=== PATIENT | female | born 2005 | race Caucasian/White ===

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

== ENCOUNTER 2024-05-07 15:16 | Emergency (ER) | payer BC, SELFPAY ==
[2024-05-07 15:19] VITALS: BP 104/72; PULSE 76; RESP 16; TEMP 36.7; O2SAT 98
--- NOTE | 2024-05-07 15:30 | DI.RAD_ITS ---
Exam(s) XR HAND RT COMPLETE EXAM: XR HAND RT COMPLETE CLINICAL HISTORY: dog bite. TECHNIQUE: 2D digital imaging was performed. COMPARISON: CR XR HAND LT COMPLETE from 05/07/2024 FINDINGS: 3 views No evidence of fracture nor dislocation nor abnormal soft tissue calcifications. No radiopaque forei gn bodies. No osseous lesions. No erosions. Bone density normal. IMPRESSION: No significant osseous findings in the right hand. DATA REPOSITORY: RADIATION DOSE DELIVERED:
--- NOTE | 2024-05-07 15:30 | DI.RAD_ITS ---
Exam(s) XR HAND LT COMPLETE EXAM: XR HAND LT COMPLETE CLINICAL HISTORY: dog bite. TECHNIQUE: 2D digital imaging was performed. COMPARISON: CR XR hand RT complete from 12/22/2018 FINDINGS: 3 views There is mild dorsal soft tissue swelling. No evidence of fracture or dislocation nor radiopaque for eign bodies. No osseous lesions nor erosions. No evidence of osteomyelitis. IMPRESSION: No acute osseous findings in the left hand. DATA REPOSITORY: RADIATION DOSE DELIVERED:
[2024-05-07] MEDS: Povidone-Iodine Soln. 118 ML BTL (15:55)
[2024-05-07] MEDS: Acetaminophen 500 MG TAB 1000 MG PO (15:55)
[2024-05-07] MEDS: Lidocaine/Epinephri/Tetracaine Topical Gel 3 ML TP (15:55)
[2024-05-07] MEDS: Amoxicillin 875/Clav. 125 TAB PO (15:55)
[2024-05-07 15:57] VITALS: BP 104/72; PULSE 76; RESP 16; TEMP 36.7; O2SAT 98
[2024-05-07] MEDS: Amox. 875/Clav. 125, 2 TABS/BTL 1 TAB PO (16:55)
--- NOTE | 2024-05-07 19:56 | ED.GENADUL_ITS ---
Discharge Plan Disposition Patient Disposition: Home Condition: Stable Discharge Details Clinical Impression: Dog bite Primary Care Provider: Unknown,Unknown ED Provider: Andrea Snell Home Meds and New Rx's Prescriptions: New amoxicillin-pot clavulanate 875-125 mg tablet 1 tab PO BID 6 Days Qty: 12 0RF No Action ibuprofen 400 MG tablet 400 mg PO Q6H PRN PRNQty: 60 0RF Discharge Instructions Instructions: Animal Bites ED Additional Instructions: * Continue Augmentin for total of 7 days * Keep wounds clean and dry with soap and water. Pat dry. Do not scrub the area. Do not apply hydrogen peroxide or alcohol * You have 3 stitches in your face, these will dissolve in about 7 to 10 days you may notice additional bruising or swelling, you can apply ice pack to the area * You have 1 stitch in your right middle finger, this will also dissolve * Monitor for signs of infection including worsening redness, swelling, foul- smelling drainage Discharge Data Discharge Date/Time-TO BE ENTERED AT DEPARTURE: 05/07/24 16:56 HPI General Date/Time Provider Initiated Documentation: 05/07/24 15:40 . Limitations to Documentation: no limitations . Information obtained by: patient . HPI Narrative: 18-year-old female without significant past medical history presents for evaluation of injuries sustained from a dog. She reports that her pets were fighting and she went to break them up. She states that they are like medium size dogs. She reports injury to her face and bilateral hands. She reports that their vaccinations are up-to-date as well as her tetanus. Related Data Home Medications ?Medication ?Instructions ?Recorded ?Confirmed ibuprofen 400 mg tablet 400 mg PO Q6H PRN PRN ##60 12/11/17 05/07/24 amoxicillin 875 mg-potassium 1 tab PO BID 6 days #12 tabs 05/07/24 clavulanate 125 mg tablet Previous Rx's ?Medication ?Instructions ?Recorded ibuprofen 400 mg tablet 400 mg PO Q6H PRN PRN ##60 12/11/17 amoxicillin 875 mg-potassium 1 tab PO BID 6 days #12 tabs 05/07/24 clavulanate 125 mg tablet Allergies Allergy/AdvReac Type Severity Reaction Status Date / Time No Known Allergies Allergy Unverified 05/07/24 15:24 General Stated Complaint: AnimalBite LEO: 3 Exam Narrative Exam Narrative: Review of Systems: All systems reviewed & are unremarkable except as noted in HPI and below Well-developed, no acute distress Abrasion over left orthodoxy, 1.5 cm linear laceration well-approximated over the left zygoma PERRL, normal conjunctiva RRR Unlabored respiratory effort Bilateral hands with injuries noted. The left hand has some swelling and bruising noted. There are 2 punctures on the dorsal side and 2 very small punctures on the palmar aspect, neurovascularly intact, normal range of motion throughout all distributions On the right hand the long finger has very small disruption to the cuticle, nailbed is intact, on the palmar aspect of the hand there is a 1 cm gaping disruption Course Vital Signs Vital signs: Vital Signs Temperature 36.7 C 05/07/24 15:19 Pulse 76 05/07/24 15:19 Respiratory Rate 16 05/07/24 15:19 Blood Pressure 104/72 05/07/24 15:19 Pulse Oximetry 98 05/07/24 15:19 Temperature 36.7 C 05/07/24 15:57 Temperature Source Oral 05/07/24 15:57 Pulse 76 05/07/24 15:57 Respiratory Rate 16 05/07/24 15:57 Respiratory Effort Normal 05/07/24 15:25 Blood Pressure 104/72 05/07/24 15:57 Pulse Oximetry 98 05/07/24 15:57 Oxygen Delivery Method Room Air 05/07/24 15:57 Oxygen Flow Rate 0 05/07/24 15:57 Pain Level 7 05/07/24 15:57 Procedures Laceration Laceration 1: Site: face Side (If applicable): left Size (cm): 1.5 Depth: simple, single layer Local anesthetic: LET(lidocaine epinephrine tetracaine) Pre-repair: wound explored and irrigated extensively Skin layer closed with: vicryl Size (cm): 5-0 Number of sutures: 3 Laceration 2: Site: hand Side (If applicable): right (Long finger) Size (cm): 1 Description: irregular Local anesthetic: Lidocaine 1% (Digital block) Pre-repair: wound explored, irrigated extensively and deep structures intact Skin layer closed with: vicryl Size (cm): 5-0 Number of sutures: 1 Technique: simple, interrupted Medical Decision Making Emergent evaluation of injury sustained from dog bite. The patient sustained these injuries from her own dogs. They are vaccinated. The patient has bilateral hand injuries. Wounds were all irrigated and cleaned. X-ray imaging of bilateral hands was obtained to evaluate for fracture or foreign body. There were no bony injuries noted. The left hand wounds are fairly small puncture type wounds and do not need suture repair. These are left open to drain. She does have a gaping wound on the right palmar surface of the long finger and 1 stitch was placed to just approximate this gape, but otherwise left open to help with drainage and healing. 3 sutures were placed to loosely approximate the laceration on her face. Wound care instructions were provided and strict return precautions were discussed. Signs of infection were discussed with the patient. Her first dose of Augmentin was given in the emergency department. And a prescription was sent to the pharmacy. Return precautions advised. Quality:[facility] Related Social Needs: No Data to Display [facility] All Active Problems Dog bite (Acute) Surgical History Tonsillectomy and adenoidectomy Social History Smoking/Tobacco Use Status: Current every day Tobacco Type: e-cigarettes Smoking risk assessment performed?: Yes Alcohol Intake: current Alcohol Intake frequency: holidays/special occasions only Drug use: Daily Substance use type: marijuana Housing: house Do you feel safe at home: Yes Do you feel safe in your relationship?: Yes
== END 2024-05-07 16:56 | disposition home or self-care (01) ==
PROVIDERS: Emergency Provider Emergency Medicine
DX: S61.451A Open bite of right hand, initial encounter (principal); S01.85XA Open bite of other part of head, initial encounter; W54.0XXA Bitten by dog, initial encounter
CPT/HCPCS: 12001; 12011; 99283; 73130; 99284

== ENCOUNTER 2024-08-26 16:33 | Outpatient (REF) | payer BC, SELFPAY ==
[2024-08-26 18:59] LABS: Abs Immature Grans 0.02 10^3/uL (0.0-0.06); Absolute Basophil Count 0.05 10^3/uL (0.0-0.2); Absolute Lymphocyte Count 2.57 10^3/uL (1.2-3.4); Absolute Monocyte Count 0.44 10^3/uL (0.1-0.8); Absolute Neutrophil Count 4.05 10^3/uL (1.2-6.7); Basophils % 0.7 %; Eosinophils % 1.4 %; HCT 41.8 % (36.0-46.0); HGB 14.1 g/dL (11.2-15.7); Immature Grans % 0.3 %; Lymphocytes % 35.5 %; MCH 30.5 pg (27.0-33.0); MCHC 33.7 % (32.0-36.0); MCV 91 fL (80-95); MPV 10.3 fL (8.0-11.0); Monocytes % 6.1 %; Platelet Count 284 10^3/uL (130-400); RBC 4.62 10^6/uL (3.93-5.22); RDW 12.1 % (11.7-14.6); WBC 7.23 10^3/uL (4.4-10.8)
[2024-08-26 19:15] LABS: ALT 25 U/L (14-59); AST 22 U/L (15-37); Albumin 4.2 g/dL (3.4-5.0); Alkaline Phosphatase 79 U/L (46-116); Anion Gap 6.6 mmol/L (3-11); BUN 17 mg/dL (7-18); Bilirubin, Total 0.26 mg/dL (0.2-1.0); CO2 29.4 mmol/L (21.0-32.0); CREATININE 0.8 mg/dL (0.55-1.02); Calcium 9.7 mg/dL (8.5-10.1); Chloride 104 mmol/L (98-107); Estimated GFR 108.11 (mL/min/1.73m2); Glucose 88 mg/dL (74-106); Potassium 4.3 mmol/L (3.5-5.1); Sodium 140 mmol/L (136-145); TSH (W/Ref FT4) 1.39 uIU/mL (0.36-3.74); Total Protein 7.8 g/dL (6.4-8.2)
[2024-08-26 19:42] LABS: Hemoglobin A1C 5.2 % (<5.7)
[2024-08-27 04:04] LABS: FREE T4 0.89 ng/dL (0.76-1.46)
[2024-08-27 17:41] LABS: Estradiol 107 pg/mL (See Note); Progesterone 0.5 ng/mL (See Table)
[2024-08-27 18:13] LABS: FSH 4.1 mIU/mL (See Note); Prolactin 7.9 ng/mL (See Note)
[2024-09-03 16:20] LABS: Testosterone, Total 23 ng/dL (8-60)
== END 2024-08-26 16:34 | disposition home or self-care (01) ==
LOC: NCHCN 16:33
PROVIDERS: Visit Provider Nurse Practitioner Family
DX: N89.8 Other specified noninflammatory disorders of vagina (principal); R61 Generalized hyperhidrosis; R23.2 Flushing
CPT/HCPCS: 80053; 84402; 84403; 82670; 83001; 83002; 83036; 84144; 84146; 84439; 84443; 85025; 87480; 87510; 87660

== ENCOUNTER 2024-09-16 15:14 | Outpatient (REF) | payer BC, SELFPAY ==
--- OUTSIDE RECORDS SUMMARY | 2024-09-16 15:16 | XMS_ITS | Data Portability ---
Author Organization [place] - [facility] Address [address] [place] [address] Assessment No assessment recorded. Plan of Treatment Reminders Order Date Submit Date Provider Last Modified By Organization Details Last Modified Time Details Appointments Acute 20 2024 01:40P M Lainey Sanchez Not available Not available Not available Follow Up 2024 12:30P M GAYLE CHOW Not available Not available Not available Lab None recorded . Referral None recorded . Procedures None recorded . Surgeries None recorded . Imaging None recorded . Medication Orders None recorded . Patient TargetsNo targets recorded. Patient InstructionsNo instructions recorded. Reason for Referral None Reported. Results Created Date Observation Date Name Description Value Unit Range Abnormal Flag Note LastModifiedBy Organization Detail LastModifiedTime 08/26/1908/26/2024 COMPL ETE BLOOD COUNT W/DIF F WBC 7.23 10_3/ uL 4.4-10 .8 normal Not Available [address] [place], [address] 08/26/2024 19:02:04 08/26/1908/26/2024 COMPL ETE BLOOD COUNT W/DIF F RBC 4.62 10_6/ uL 3.93-5 .22 normal Not Available [address] [place], [address] 08/26/2024 19:02:04 08/26/1908/26/2024 COMPL ETE BLOOD COUNT W/DIF F HGB 14.1 g/dL 11.2-1 5.7 normal Not Available [address] [place], [address] 08/26/2024 19:02:04 08/26/19 25 08/26/2024 COMPL ETE BLOOD COUNT W/DIF F HCT 41.8 % 36.0-4 6.0 normal Not Available [address] [place], [address] 08/26/2024 19:02:04 08/26/19 25 08/26/2024 COMPL ETE BLOOD COUNT W/DIF F MCV 91 fL 80-95 normal Not Available Lemuel [address] [place], [address] 08/26/2024 19:02:04 08/26/19 25 08/26/2024 COMPL ETE BLOOD COUNT W/DIF F MCH 30.5 pg 27.0-3 3.0 normal Not Available [address] [place], [address] 08/26/2024 19:02:04 08/26/19 25 08/26/2024 COMPL ETE BLOOD COUNT W/DIF F MCHC 33.7 % 32.0-3 6.0 normal Not Available [address] [place], [address] 08/26/2024 19:02:04 08/26/19 25 08/26/2024 COMPL ETE BLOOD COUNT W/DIF F RDW 12.1 % 11.7-1 4.6 normal Not Available [address] [place], [address] 08/26/2024 19:02:04 08/26/19 25 08/26/2024 COMPL ETE BLOOD COUNT W/DIF F platelet count 284 10_3/ uL 130-40 0 normal Not Available [address] [place], [address] 08/26/2024 19:02:04 08/26/19 25 08/26/2024 COMPL ETE BLOOD COUNT W/DIF F MPV 10.3 fL 8.0-11 .0 normal Not Available [address] [place], [address] 08/26/2024 19:02:04 08/26/19 25 08/26/2024 COMPL ETE BLOOD COUNT W/DIF F neutrophils % 56.0 % Not Available [address] [place], [address] 08/26/2024 19:02:04 08/26/1908/26/2024 COMPL ETE BLOOD COUNT W/DIF F lymphocytes % 35.5 % Not Available [address] [place], [address] 08/26/2024 19:02:04 08/26/19 25 08/26/2024 COMPL ETE BLOOD COUNT W/DIF F monocytes % 6.1 % Not Available [address] [place], [address] 08/26/2024 19:02:04 08/26/19 25 08/26/2024 COMPL ETE BLOOD COUNT W/DIF F eosinophils % 1.4 % Not Available [address] [place], [address] 08/26/2024 19:02:04 08/26/19 25 08/26/2024 COMPL ETE BLOOD COUNT W/DIF F basophils % 0.7 % Not Available [address] [place], [address] 08/26/2024 19:02:04 08/26/1908/26/2024 COMPL ETE BLOOD COUNT W/DIF F immature grans % 0.3 % Not Available [address] [place], [address] 08/26/2024 19:02:04 08/26/19 25 08/26/2024 COMPL ETE BLOOD COUNT W/DIF F nucleated RBC 0.0 % 0.0-0. 3 normal Not Available [address] [place], [address] 08/26/2024 19:02:04 08/26/19 25 08/26/2024 COMPL ETE BLOOD COUNT W/DIF F absolute neutrophil count 4.05 10_3/ uL 1.2-6. 7 normal Not Available [address] [place], [address] 08/26/2024 19:02:04 08/26/19 25 08/26/2024 COMPL ETE BLOOD COUNT W/DIF F absolute lymphocyte count 2.57 10_3/ uL 1.2-3. 4 normal Not Available [address] [place], [address] 08/26/2024 19:02:04 08/26/19 25 08/26/2024 COMPL ETE BLOOD COUNT W/DIF F absolute monocyte count 0.44 10_3/ uL 0.1-0. 8 normal Not Available [address] [place], [address] 08/26/2024 19:02:04 08/26/19 25 08/26/2024 COMPL ETE BLOOD COUNT W/DIF F absolute eosinophil count 0.10 10_3/ uL 0.0-0. 7 normal Not Available [address] [place], [address] 08/26/2024 19:02:04 08/26/19 25 08/26/2024 COMPL ETE BLOOD COUNT W/DIF F absolute basophil count 0.05 10_3/ uL 0.0-0. 2 normal Not Available [address] [place], [address] 08/26/2024 19:02:04 08/26/19 25 08/26/2024 COMPR EHENS HESHAM METAB OLIC PANEL calcium 9.7 mg/dL 8.5-10 .1 normal Not Available [address] [place], [address] 08/26/2024 19:20:06 08/26/19 25 08/26/2024 COMPR EHENS HESHAM METAB OLIC PANEL glucose 88 mg/dL 74-106 normal Not Available Lemuel donahue [address] [place], [address] 08/26/2024 19:20:06 08/26/19 25 08/26/2024 COMPR EHENS HESHAM METAB OLIC PANEL BUN 17 mg/dL 7-18 normal Not Available Lemuel donahue [address] [place], [address] 08/26/2024 19:20:06 08/26/19 25 08/26/2024 COMPR EHENS HESHAM METAB OLIC PANEL creatinine 0.8 mg/dL 0.55-1 .02 normal Not Available [address] [place], [address] 08/26/2024 19:20:06 08/26/19 25 08/26/2024 COMPR EHENS HESHAM METAB OLIC PANEL estimated GFR 108.11 mL/min /1.73M 2 The eGFR is calcu lated from a serum creat inine using the CKD-E PI 2020 equat ion. Other varia bles requi red for the equat ion are gende r and age; this equat ion does not inclu de a race coeff icien t. This equat ion has simil ar overa ll perfo rmanc e to previ ous equat ions excep t value s may diffe r, in parti cular , in patie nts with highe r value s of eGFR and young er-ag ed adult s. Not Available [address] [place], [address] 08/26/2024 19:20:06 08/26/19 25 08/26/2024 COMPR EHENS HESHAM METAB OLIC PANEL total protein 7.8 g/dL 6.4-8. 2 normal Not Available [address] [place], [address] 08/26/2024 19:20:06 08/26/19 25 08/26/2024 COMPR EHENS HESHAM METAB OLIC PANEL albumin 4.2 g/dL 3.4-5. 0 normal Not Available [address] [place], [address] 08/26/2024 19:20:06 08/26/19 25 08/26/2024 COMPR EHENS HESHAM METAB OLIC PANEL bilirubin, total 0.26 mg/dL 0.2-1. 0 normal Not Available [address] [place], [address] 08/26/2024 19:20:06 08/26/19 25 08/26/2024 COMPR EHENS HESHAM METAB OLIC PANEL alk phos 79 U/L 46-116 normal Not Available [address] [place], [address] 08/26/2024 19:20:06 08/26/19 25 08/26/2024 COMPR EHENS HESHAM METAB OLIC PANEL sodium 140 mmol/ L 136-14 5 normal Not Available [address] [place], [address] 08/26/2024 19:20:06 08/26/19 25 08/26/2024 COMPR EHENS HESHAM METAB OLIC PANEL potassium 4.3 mmol/ L 3.5-5. 1 normal Not Available [address] [place], [address] 08/26/2024 19:20:06 08/26/19 25 08/26/2024 COMPR EHENS HESHAM METAB OLIC PANEL chloride 104 mmol/ L 98-107 normal Not Available [address] [place], [address] 08/26/2024 19:20:06 08/26/19 25 08/26/2024 COMPR EHENS HESHAM METAB OLIC PANEL CO2 29.4 mmol/ L 21.0-3 2.0 normal Not Available [address] [place], [address] 08/26/2024 19:20:06 08/26/19 25 08/26/2024 COMPR EHENS HESHAM METAB OLIC PANEL anion gap 6.6 mmol/ L 3-11 normal Not Available [address] [place], [address] 08/26/2024 19:20:06 08/26/19 25 08/26/2024 COMPR EHENS HESHAM METAB OLIC PANEL AST 22 U/L 15-37 normal Not Available Lemuel donahue [address] [place], [address] 08/26/2024 19:20:06 08/26/19 25 08/26/2024 COMPR EHENS HESHAM METAB OLIC PANEL ALT 25 U/L 14-59 normal Not Available Lemuel donahue [address] [place], [address] 08/26/2024 19:20:06 08/26/19 25 08/26/2024 TSH (W/RE F FT4) TSH (w/ref FT4) 1.39 uIU/m L 0.36-3 .74 normal NOTE: Supra -phys iolog ic doses of Bioti n(B7) may cause false negat hesham resul ts. Not Available [address] [place], [address] 08/26/2024 19:20:06 08/26/19 25 08/26/2024 HEMOG LOBIN A1C hemoglobin A1C 5.2 % <5.7 Refer ence Range s <5.7 Itzel l 5.7-6 .4% Predi abete s 6.5% or great er Diagn ostic for diabe hilary (if confi rmed) Refer ences : 1. [facility]i can Diabe hilary Assoc iatio n. Clas sific ation and Diagn osis of Diabe hilary. Diabe hilary [facility] 2019 Aug; 2(Sup pleme nt 1):S1 3-s28 . Not Available [facility] (Registration ) [address] [place] [address] [place], [address], 08/26/2024 19:46:08 08/26/19 25 08/26/2024 VAGIN AL PATHO GEN SCREE N vaginal pathogen screen abnormal Vagin al Patho gen Scree n DESI DA NEGAT HESHAM GARDN ERELL A POSIT HESHAM TRICH OMONA S NEGAT HESHAM Not Available [facility] (Registration ) [address] [place] [address] [place], [address], 08/26/2024 21:38:19 08/26/19 25 08/26/2024 TSH (W/RE F FT4) TSH (w/ref FT4) 1.39 uIU/m L 0.36-3 .74 normal NOTE: Supra -phys iolog ic doses of Bioti n(B7) may cause false negat hesham resul ts. Not Available [facility] (Registration ) [address] [place] [address] [place], [address], 08/27/2024 04:06:08 08/26/19 25 08/27/2024 FREE T4 free T4 0.89 NG/dL 0.76-1 .46 normal Not Available [facility] (Registration ) [address] [place] [address] [place], [address], 08/27/2024 04:06:08 08/26/19 25 08/27/2024 ESTRA DIOL estradiol 107 pg/mL see note NOTE: FEMAL E REFER ENCE RANGE S: MENST RUATI NG By cycle day relat hesham to LH peak Folli cular (-12 to -4 days) 20-14 4 pg/mL Midcy meghana (-3 to +2 days) 64-35 7 pg/mL Lutea l (+4 to +12 days) 56-21 4 pg/mL POSTM ENOPA USAL <32 pg/mL *Cros s react ivity with Fulve stran t could lead to a false ly eleva marcelino estra diol resul t in patie nts treat ed with this drug. Test perfo rmed or refer red by [facility] [address] [place] [address] [address] [facility] [address] [place], [address] 08/28/2024 01:53:01 08/26/19 25 08/27/2024 PROGE STERO NE ([facility]) progesterone (uvm) 0.5 NG/mL see table Femal e Refer ence Range s: PHYSI OLOGI TANNER STATU S REFER ENCE RANGE ----- ----- ----- ----- ----- ----- ---- Pre-P ubert al: <= 0.2 ng/mL Menst ruati ng: (Non- Pregn ant) ----- ----- ----- ----- -- Folli cular Phase : <= 1.4 ng/mL Lutea l Phase : 3.3 - 25.6 ng/mL Mid-l uteal Phase : 4.4 - 28.0 ng/mL Postm enopa usal: <= 0.7 ng/mL ----- ----- ---- Pregn ant: ----- --- First Trime ster: 11.2 - 90.0 ng/mL Secon d Trime ster: 25.6 - 89.4 ng/mL Third Trime ster: 48.4 - 422.5 ng/mL For ectop ic pregn david, consu lt a patho logis t. Test perfo rmed or refer red by [facility] [address], [place] [address] Not Available [facility] (Registration ) [address] [place] [address] [place], [address], 08/28/2024 01:53:01 08/26/1908/27/2024 PROLA CTIN prolactin 7.9 NG/mL see note NOTE: Femal e Refer ence Range s: PHYSI OLOGI TANNER STATU S REFER ENCE RANGE ----- ----- ----- ----- ----- ----- ---- Postm enopa usal 1.8 - 20.3 ng/mL Pregn ant 9.7 - 208.5 ng/mL Non-p regna nt 2.8 - 29.2 ng/mL Test perfo rmed or refer red by [facility] [address], [place] [address] Not Available [address] [place], [address] 08/28/2024 01:53:01 08/26/1908/27/2024 FSH FSH 4.1 mIU/m L see note NOTE: Femal e FSH Refer ence Range s (Mens truat ing): PHYSI OLOGI TANNER STATU S REFER ENCE RANGE ----- ----- ----- ----- ----- ----- ----- Folli cular (-12 to -4 days) : 2.5 - 10.2 mIU/m L Midcy meghana (-3 to +2 days) : 3.4 - 33.4 mIU/m L Lutea l (+4 to +12 days) : 1.5 - 9.1 mIU/m L Postm enopa usal: 23.0 - 116.3 mIU/m L Refer ence Range s for pedia tric non-m enstr uatin g femal e patie nts have not been estab lishe d. Test perfo rmed or refer red by [facility] [address] [place] [address] Not Available [address] [place], [address] 09/03/2024 16:52:01 08/26/19 25 08/27/2024 LH LH 4.0 mIU/m L see note NOTE: Femal e Refer ence Range s: Pre-P ubert al: <6.0 mIU/m L ----- ----- -- Menst ruati ng: ----- ----- -- Folli cular Phase (-12 to -4 days: 1.9 - 12.5 mIU/m L Midcy meghana(- 3 to +2 days) : 8.7 - 76.3 mIU/m L Lutea l Phase (+4 to +12 days) : 0.5 - 16.9 mIU/m L Post Menop ausal : 15.9 - 54.0 mIU/m L ----- ----- ----- Test perfo rmed or refer red by [facility] [address] [place] [address] Not Available [address] [place], [address] 09/03/2024 16:52:02 08/26/19 25 08/27/2024 ESTRA DIOL estradiol 107 pg/mL see note NOTE: FEMAL E REFER ENCE RANGE S: MENST RUATI NG By cycle day relat hesham to LH peak Folli cular (-12 to -4 days) 20-14 4 pg/mL Midcy meghana (-3 to +2 days) 64-35 7 pg/mL Lutea l (+4 to +12 days) 56-21 4 pg/mL POSTM ENOPA USAL <32 pg/mL *Cros s react ivity with Fulve stran t could lead to a false ly eleva marcelino estra diol resul t in patie nts treat ed with this drug. Test perfo rmed or refer red by [facility] [address] [place] [address] Not Available [facility] (Registration ) [address] [place] [address] [place], [address], 08/28/2024 01:53:05 08/26/19 25 08/27/2024 PROGE STERO NE ([facility]) progesterone (uvm) 0.5 NG/mL see table Femal e Refer ence Range s: PHYSI OLOGI TANNER STATU S REFER ENCE RANGE ----- ----- ----- ----- ----- ----- ---- Pre-P ubert al: <= 0.2 ng/mL Menst ruati ng: (Non- Pregn ant) ----- ----- ----- ----- -- Folli cular Phase : <= 1.4 ng/mL Lutea l Phase : 3.3 - 25.6 ng/mL Mid-l uteal Phase : 4.4 - 28.0 ng/mL Postm enopa usal: <= 0.7 ng/mL ----- ----- ---- Pregn ant: ----- --- First Trime ster: 11.2 - 90.0 ng/mL Secon d Trime ster: 25.6 - 89.4 ng/mL Third Trime ster: 48.4 - 422.5 ng/mL For ectop ic pregn david, consu lt a patho logis t. Test perfo rmed or refer red by [facility] [address] [place] [address] Not Available [address] [place], [address] 08/28/2024 01:53:05 08/26/19 25 08/27/2024 [address]IN prolactin 7.9 NG/mL see note NOTE: Femal e Refer ence Range s: PHYSI OLOGI TANNER STATU S REFER ENCE RANGE ----- ----- ----- ----- ----- ----- ---- Postm enopa usal 1.8 - 20.3 ng/mL Pregn ant 9.7 - 208.5 ng/mL Non-p regna nt 2.8 - 29.2 ng/mL Test perfo rmed or refer red by [facility] [address] [place] [address] Not Available [facility] (Registration ) [address] [place] [address] [place], [address], 08/28/2024 01:53:06 08/26/1909/03/2024 TESTO STERO NE, TOTAL FREE testosterone , free 0.90 NG/dL <0.13- 1.08 ----- ----- ----- ----A DDITI ONAL INFOR MATIO N---- ----- ----- ----- This test was devel oped and its perfo rmanc e kerry cuadra deter mined by [facility] c in a karen r consi stent with CLIA requi remen ts. This test has not been clear ed or appro tanna by the U.S. Food and Drug Admin istra tion. Not Available [address] [place], [address] 09/03/2024 16:51:59 08/26/1909/03/2024 TESTO STERO NE, TOTAL FREE testosterone , total 23 NG/dL 8-60 ----- ----- ----- ----A DDITI ONAL INFOR MATIO N---- ----- ----- ----- Testi ng perfo rmed by [place] gregorio Mass Spect romepop owens (LC-M S/MS) . This test was devel oped and its perfo rmanc e kerry cteri stics deter mined by [facility] in a karen r consi stent with CLIA requi remen ts. This test has not been clear ed or appro tanna by the U.S. Food and Drug Admin istra tion. Test Perfo rmed by: [facility] [place] [address] , [place] [address] Lab Direc tor: Ge Shipley nn Ph.D. ; CLIA# [id number] Not Available [address] [place], [address] 09/03/2024 16:51:59 08/26/19 25 08/27/2024 ESTRA DIOL estradiol 107 pg/mL see note NOTE: FEMAL E REFER ENCE RANGE S: MENST RUATI NG By cycle day relat hesham to LH peak Folli cular (-12 to -4 days) 20-14 4 pg/mL Midcy meghana (-3 to +2 days) 64-35 7 pg/mL Lutea l (+4 to +12 days) 56-21 4 pg/mL POSTM ENOPA USAL <32 pg/mL *Cros s react ivity with Fulve stran t could lead to a false ly eleva marcelino estra diol resul t in patie nts treat ed with this drug. Test perfo rmed or refer red by [facility] [address] [place] [address] Not Available [address] [place], [address] 09/03/2024 16:52:00 08/26/19 25 08/27/2024 PROGE STERO NE progesterone 0.5 NG/mL see table Femal e Refer ence Range s: PHYSI OLOGI TANNER STATU S REFER ENCE RANGE ----- ----- ----- ----- ----- ----- ---- Pre-P ubert al: <= 0.2 ng/mL Menst ruati ng: (Non- Pregn ant) ----- ----- ----- ----- -- Folli cular Phase : <= 1.4 ng/mL Lutea l Phase : 3.3 - 25.6 ng/mL Mid-l uteal Phase : 4.4 - 28.0 ng/mL Postm enopa usal: <= 0.7 ng/mL ----- ----- ---- Pregn ant: ----- --- First Trime ster: 11.2 - 90.0 ng/mL Secon d Trime ster: 25.6 - 89.4 ng/mL Third Trime ster: 48.4 - 422.5 ng/mL For ectop ic pregn david, consu lt a patho logis t. Test perfo rmed or refer red by [facility] [address], [place] [address] Not Available [address] [place], [address] 09/03/2024 16:52:00 08/26/1908/27/2024 [address]A [address]IN prolactin 7.9 NG/mL see note NOTE: Femal e Refer ence Range s: PHYSI OLOGI TANNER STATU S REFER ENCE RANGE ----- ----- ----- ----- ----- ----- ---- Postm enopa usal 1.8 - 20.3 ng/mL Pregn ant 9.7 - 208.5 ng/mL Non-p regna nt 2.8 - 29.2 ng/mL Test perfo rmed or refer red by [facility] [address], [place] [address] Not Available [address] [place], [address] 09/03/2024 16:52:01 04/28/20 24 05/08/2020 imagi ng/di agnos tic resul t No observ ation record ed. [email or web address] Not Available 04/28 03:46:30 04/28/20 24 12/22/2018 imagi ng/di agnos tic resul t No observ ation record ed. [email or web address] Not Available 04/28 03:46:50 04/28/20 24 05/08/2020 imagi ng/di agnos tic resul t No observ ation record ed. [email or web address] Not Available 04/28 03:46:51 04/28/20 24 05/08/2020 imagi ng/di agnos tic resul t No observ ation record ed. [email or web address] Not Available 04/28 03:46:52 04/28/20 24 05/08/2020 imagi ng/di agnos tic resul t No observ ation record ed. [email or web address] Not Available 04/28 03:46:53 04/28/20 24 05/08/2020 imagi ng/di agnos tic resul t No observ ation record ed. [email or web address] Not Available 04/28 03:46:55 04/28/20 24 05/11/2020 imagi ng/di agnos tic resul t No observ ation record ed. [email or web address] Not Available 04/28 03:47:07 04/28/20 24 12/23/2018 imagi ng/di agnos tic resul t No observ ation record ed. [email or web address] Not Available 04/28 03:47:08 04/28/20 24 05/11/2020 imagi ng/di agnos tic resul t No observ ation record ed. [email or web address] Not Available 04/28 03:47:17 04/28/20 24 05/11/2020 imagi ng/di agnos tic resul t No observ ation record ed. [email or web address] Not Available 04/28 03:47:18 04/28/20 24 05/12/2020 imagi ng/di agnos tic resul t No observ ation record ed. [email or web address] Not Available 04/28 03:47:19 09/15/19 25 09/15/2024 US, pelvi s, trans abdom inal + trans vagin al Patien t Name: Pearl Carlin Unit #: [id number] Loc: DI Orderi ng Provid er: Gayle Chow t #: [id number] Status : REG CLI Primar y Care Provid er: Unknow n,Unkn own Date of Exam: 11/04 Sex: F Admiss ion Date: : 2005 Age: 19 Exam(s ) US PELVIS TRANSV AGINAL EXAM: US PELVIS TRANSV AGINAL CLINIC AL HISTOR Y: Menorr hagia, N92.0, excess hesham and freque nt menstr uation w/regu lar cycle TECHNI QUE: Transa bdomin al and transv aginal imagin g was perfor med using standa rd protoc ol. COMPAR JOELLE: No exams were availa ble for compar joelle FINDIN GS: UTERUS : Anteve rted. 8.4 x 4.8 x 5.5 cm Endome trium: 11 mm Myomet rium: Unrema rkable . Cervix : Unrema rkable . OVARIE S: Right: Cyst or mass: 13 millim eter follic le. Small amount of adjace nt fluid. Left: Cyst or mass: None. DOPPLE R: Color: Symmet karen and unifor m flow to both ovarie s. No hypere shasha. CUL-DE -SAC: Free fluid: None. IMPRES DOUG: 1. Normal -appea ring uterus with endome trial stripe within normal limits . 2. Unrema rkable bilate ral ovarie s. DATA REPOSI TORY: Ordere d By: Gayle Chow CC: ------ ------ ------ ------ ------ ------ ------ ------ ------ ------ ------ ------ - Dictat ed By: Coleen Garcia 1456 1456 Transc ribed By: Jacqueline Perez 1456 This is privil eged, confid ential inform ation intend ed only for the provid er named. Any use or distri bution by any person other than this provid er is strict ly prohib ited. If you receiv e this report in error, please notify us immedi ately at and return the origin al report to us at the addres s above. Thank- you. [email or web address] [facility] (Radiology) [address], [place], [address], 09/15/2024 16:08:56 09/15/19 25 09/15/2024 US, pelvi s, trans abdom inal + trans vagin al No observ ation record ed. JONEL [facility] (Radiology) [address] , [place], [address], 09/15/2024 15:16:06 Result Notes None recorded. Problems Name Problem SNOMED Code Status Onset Date Resolution Date Notes Provider Name and Address Organization Details Recorded Time Irregula r periods 77329413 Active [address], [place], [address] , [facility] 13:13:49 Menorrha rasheed 813498027 Active [address], [place], [address] , [facility] 13:14:02 Dysmenor evelyn 515920364 Active [address], [place], [address] , [facility] 13:14:09 Night sweats 27235206 Active [address], [place], [address] , [facility] 13:15:26 Non-kain pausal hot flash 85053695283 9109 Active [address], [place], [address] , [facility] 13:15:36 Vaginal odor 910856058 Active [address], [place], [address] , [facility] 13:39:07 Bacteria l vaginosi s 124504145 Active 2024 [address], [place], [address] , [facility] 5 12:29:08 Acute bronchit is [id number] Completed 201501/11/2016 Problem Code: J20.9; Problem Code Type: ICD-10; Not Available [facility] 3 05:13:25 Acute pharyngi tis [id number] Completed 201605/02/2017 Problem Code: J02.9; Problem Code Type: ICD-10; Not Available [facility] 3 05:13:25 Fatigue 00858125 Active 2022 Problem Code: R53.83; Problem Code Type: ICD-10; Not Available [facility] 3 05:13:25 Cognitiv e deficit in attentio n [id number] 9100 Active 202211/20/19 23 - Comments only - Gayle Chow ASSISTANT STORE MANAGER - Referral to psychiat [facility] for full evaluati on for possible ADD per patient request. Problem Code: R41.840; Problem Code Type: ICD-10; Not Available [facility] 3 05:13:25 Abnormal weight gain 030235220 Active 202211/20/19 23 - Comments only - Gayle Chow ASSISTANT STORE MANAGER - Screenin g labs today ordered. We will follow-u p for continue d discussi on about weight gain, exercise , diet restrict ions as well as possible initiati on of trial weight loss meds if needed. Problem Code: R63.5; Problem Code Type: ICD-10; Not Available [facility] 3 05:13:25 Irritabi lity and anger [id number] Active 2022 Problem Code: R45.4; Problem Code Type: ICD-10; Not Available [facility] 3 05:13:25 Anxiety disorder 821617955 Active 202211/20/19 23 - Comments only - Gayle Chow ASSISTANT STORE MANAGER - We will establis h with one of our counselo rs here. Problem Code: F41.9; Problem Code Type: ICD-10; Not Available [facility] 3 05:13:25 Contrace ption care manageme nt Active 2022 Problem Code: Z30.9; Problem Code Type: ICD-10; Not Available [facility] 3 05:13:26 Family history of endocrin e disorder s 801533264 Active 2022 Not Available [facility] 3 05:13:26 Body mass index 40+ - severely obese 332248339 Active 2022 Problem Code: Z68.41; Problem Code Type: ICD-10; Not Available [facility] 3 05:13:26 Counseli adriano Completed 202212/10/2022 11/20/19 23 - Comments only - Gayle Chow ASSISTANT STORE MANAGER - Now radha boyd on my panel. We will follow-u p in 3 months for check-in on weight gain and chronic conditio ns. Problem Code: Z71.89; Problem Code Type: ICD-10; Not Available [facility] 3 05:13:26 Contrace ption care manageme nt Completed 201705/09/2023 Problem Code: Z30.9; Problem Code Type: ICD-10; Not Available [facility] 3 05:13:38 Abnormal weight loss 677128501 Completed 201806/03/2020 Problem Code: R63.4; Problem Code Type: ICD-10; Not Available [facility] 3 05:13:39 Stomatit is 79482204 Completed 202002/01/2021 Problem Code: K12.1; Problem Code Type: ICD-10; Not Available [facility] 3 05:13:42 Adult health examinat ion Completed 201811/10/2022 Problem Code: Z00.00; Problem Code Type: ICD-10; Not Available [facility] 3 05:13:43 Anxiety 86810213 Completed 201911/10/2022 Problem Code: F41.8; Problem Code Type: ICD-10; Not Available [facility] 3 05:13:43 Counseli ng Completed 201711/10/2022 Problem Code: Z71.89; Problem Code Type: ICD-10; Not Available [facility] 3 05:13:46 Disorder of soft tissue 60012158 Completed 201902/01/2021 Problem Code: M79.89; Problem Code Type: ICD-10; Not Available [facility] 3 05:13:47 Generali zed anxiety disorder 38077052 Completed 201806/03/2020 Problem Code: F41.1; Problem Code Type: ICD-10; Not Available [facility] 3 05:13:47 Problem Notes None recorded. Procedures Surgical History Date Name Laterality Status Provider Name and Address Organization Details Recorded Time Control Implant Removal completed BURKE MIKE [address], [place], [address], [facility] 05/12/2024 22:31:54 Imaging Results Imaging Date Name Status LastModified by Organization Details LastModified Time 05/08/2020 imaging/diagnostic result completed Information not available 04/28/2024 03:46:30 12/22/2018 imaging/diagnostic result completed Information not available 04/28/2024 03:46:50 05/08/2020 imaging/diagnostic result completed Information not available 04/28/2024 03:46:51 05/08/2020 imaging/diagnostic result completed Information not available 04/28/2024 03:46:52 05/08/2020 imaging/diagnostic result completed Information not available 04/28/2024 03:46:53 05/08/2020 imaging/diagnostic result completed Information not available 04/28/2024 03:46:55 05/11/2020 imaging/diagnostic result completed Information not available 04/28/2024 03:47:07 12/23/2018 imaging/diagnostic result completed Information not available 04/28/2024 03:47:08 05/11/2020 imaging/diagnostic result completed Information not available 04/28/2024 03:47:17 05/11/2020 imaging/diagnostic result completed Information not available 04/28/2024 03:47:18 05/12/2020 imaging/diagnostic result completed Information not available 04/28/2024 03:47:19 09/15/2024 US, pelvis, transabdominal + transvaginal active [email or web address] [facility] (Radiology) [address] [place] [address] [place], [address], 09/15/2024 16:08:56 09/15/2024 US, pelvis, transabdominal + transvaginal active JONEL [facility] (Radiology) [address] [place] [address] [place], [address], 09/15/2024 15:16:06 Procedure Notes None recorded. Medical Equipment None Reported. Allergies No known drug allergies Medications Name Sig Start Date Stop Date Status Note LastModified by Organization Details LastModified Time fluoxetin e 40 mg capsule take one tablet once a day 05/13 completed Not Available Not Available Not Available Ovide 0.5 % lotion apply to scalp, leave in 8-12 hrs then shampoo out. may repeat in 7 days if there are still eggs present. 04/02 completed Not Available Not Available Not Available azithromy sandra 250 mg tablet Take 2 by mouth now, then take 1 by mouth daily x 4 days 10/30 completed Not Available Not Available Not Available valacyclo vir 1 gram tablet 2000 mg by mouth every twelve hours 02/01 completed Not Available Not Available Not Available Debrox 6.5 % ear drops 5GTT AU BID 07/17 completed Not Available Not Available Not Available metronida zole 500 mg tablet 1 tab by mouth twice a day for 7 days. active Not Available Not Available No t Available Aerochamb er MV spacer Use with Proair 04/02 completed Not Available Not Available Not Available Ilotycin 5 mg/gram (0.5 %) eye ointment APPLY Q4H 08/06 completed Not Available Not Available Not Available Nasonex 50 mcg/actua tion [place] 07/27 completed Not Available Not Available Not Available azithromy sandra 200 mg/5 mL oral suspensio n liquid daily 07/29 completed Not Available Not Available Not Available fluoxetin e 20 mg capsule Take 1 tab by mouth daily 2018 active Not Available Not Available Not Avai lable amoxicill in 875 mg-potass ium clavulana te 125 mg tablet TAKE ONE TABLET BY MOUTH EVERY 12 HOURS FOR 6 DAYS 08/26 completed Not Available Not Available Not Available Lexapro 10 mg tablet Take 1 tab by mouth daily 2019 active Not Available Not Available Not Avai lable Lexapro 20 mg tablet Take 1 tab by mouth daily 08/24 completed Not Available Not Available Not Available ibuprofen 04/02 completed Not Available Not Available Not Available Vitamin B12 active Not Available Not Available Not Available ProAir HFA 90 mcg/actua tion aerosol inhaler Inhale 1-2 puffs by mouth every 4-6 hours as needed 04/02 completed Not Available Not Available Not Available Nexplanon 68 mg subdermal implant placed 05/2018 completed removal of nexplano n 04/01/24 Not Available Not Available Not Available vitamin K2 active Not Available Not Available Not Available Vitals Date Recorded Body height Heart rate Systolic blood pressure Diastolic blood pressure Provider Name and Address Organization Details Last Updated DateTime 04/01/2024 165.1 cm 72 /min 118 mm[Hg] 70 mm[Hg] MARKO LEONG RN [facility] 04/01/2024 13:39:51 Date Recorded Body height Body mass index (BMI) Percentile per age and sex Body mass index (BMI) Body weight Body temperature Oxygen saturation Oxygen saturation in Arterial blood by Pulse oximetry Heart rate Respiratory rate Systolic blood pressure Diastolic blood pressure Provider Name and Address Organization Details Last Updated DateTime 165.1 cm 98 % 39.9 kg/m2 220853. 73 g 98.1 [degF] 98 % 98 % 80 /min 16 /min 126 mm[Hg] 80 mm[Hg] MARKO LEONG RN [facility] 5 13:04:14 Date Recorded Body height Body mass index (BMI) Body weight Body temperature Heart rate Oxygen saturation Oxygen saturation in Arterial blood by Pulse oximetry Systolic blood pressure Diastolic blood pressure Provider Name and Address Organization Details Last Updated DateTime 5 165.1 cm 39.7 kg/m2 143006. 78 g 98.1 [degF] 120 /min 98 % 98 % 120 mm[Hg] 78 mm[Hg] Tara Fabian MA [facility] 5 13:41:53 Social History Question Answer Notes LastModified by Organizat ion Details LastModified Time Tobacco Smoking Status Never Smoker MARKO LEONG RN [facility] 04/01/2024 13:41:05 Do You Or Have You Ever Used E-cigarettes Or Vape? Current User Of Electronic Cigarettes Information not available 04/01/2024 What Was The Date Of Your Most Recent Tobacco Screening? 08/26/2024 Information not available 08/26/2024 Do You Or Have You Ever Used Smokeless Tobacco? Never Used Smokeless Tobacco Information not available 08/26/2024 Has Tobacco Cessation Counseling Been Provided? Yes Information not available 08/26/2024 On What Date Was Tobacco Cessation Counseling Provided? 08/26/2024 Cutting Back Significantly Since March 2024 Information not available 08/26/2024 Do You Or Have You Ever Used Any Other Forms Of Tobacco Or Nicotine? Yes Information not available 04/01/2024 Sex: Female Functional Status None recorded. Mental Status None recorded. Family History Nothing Reported Notes:*Problem: father: stom ach issues mother: spinal fusion, thyroid issues PGF: cancer Medical History No medical history recorded. Gynecological History Statement/Question Response LMP Approximate Obstetrics History GPAL:G 0 P 0 0 0 0 Immunizations Vaccine Type Date Status Note Provider Nam e and Address Organization Details Recorded Time MMR 9 completed Not Available [facility] 06/22/2023 05:04:22 MMR 5 completed Not Available [facility] 06/22/2023 05:04:22 DTaP, unspecified formulation 9 completed Not Available [facility] 06/22/2023 05:04:23 DTaP, unspecified formulation 4 completed Not Available [facility] 06/22/2023 05:04:23 DTaP, unspecified formulation 5 completed Not Available [facility] 06/22/2023 05:04:23 DTaP, unspecified formulation 4 completed Not Available [facility] 06/22/2023 05:04:23 DTaP, unspecified formulation 4 completed Not Available [facility] 06/22/2023 05:04:23 meningococcal MCV4P 6 completed Not Available [facility] 06/22/2023 05:04:23 Tdap 6 completed Not Available [facility] 06/22/2023 05:04:24 Influenza, split virus, quadrivalent, PF 9 completed Not Available [facility] 06/22/2023 05:04:24 Influenza, split virus, quadrivalent, PF 0 completed Not Available [facility] 06/22/2023 05:04:24 Influenza, split virus, quadrivalent, PF 7 completed Not Available [facility] 06/22/2023 05:04:24 Pneumococcal Conjugate, unspecified formulation 5 completed Not Available [facility] 06/22/2023 05:04:24 Pneumococcal Conjugate, unspecified formulation 4 completed Not Available [facility] 06/22/2023 05:04:24 Pneumococcal Conjugate, unspecified formulation 4 completed Not Available [facility] 06/22/2023 05:04:25 Pneumococcal Conjugate, unspecified formulation 4 completed Not Available [facility] 06/22/2023 05:04:25 HPV9 8 completed Not Available [facility] 06/22/2023 05:04:25 HPV9 9 completed Not Available [facility] 06/22/2023 05:04:25 HPV9 7 completed Not Available [facility] 06/22/2023 05:04:25 Hib, unspecified formulation 4 completed Not Available [facility] 06/22/2023 05:04:26 Hib, unspecified formulation 4 completed Not Available [facility] 06/22/2023 05:04:26 Hib, unspecified formulation 4 completed Not Available [facility] 06/22/2023 05:04:26 COVID-19, mRNA, LNP-S, PF, 30 mcg/0.3 mL dose 1 completed Not Available [facility] 06/22/2023 05:04:26 COVID-19, mRNA, LNP-S, PF, 30 mcg/0.3 mL dose 1 completed Not Available [facility] 06/22/2023 05:04:26 varicella 9 completed Not Available [facility] 06/22/2023 05:04:26 varicella 5 completed Not Available [facility] 06/22/2023 05:04:26 Hep B, unspecified formulation 4 completed Not Available [facility] 06/22/2023 05:04:27 Hep B, unspecified formulation 4 completed Not Available [facility] 06/22/2023 05:04:27 Hep B, unspecified formulation 4 completed Not Available [facility] 06/22/2023 05:04:27 Hep A, ped/adol, 2 dose 8 completed Not Available [facility] 06/22/2023 05:04:27 Hep A, ped/adol, 2 dose 9 completed Not Available [facility] 06/22/2023 05:04:27 Hep A, ped/adol, 2 dose 7 completed Not Available [facility] 06/22/2023 05:04:27 influenza, unspecified formulation 5 completed Not Available [facility] 06/22/2023 05:04:28 influenza, unspecified formulation 7 completed Not Available [facility] 06/22/2023 05:04:28 influenza, unspecified formulation 9 completed Not Available [facility] 06/22/2023 05:04:28 influenza, unspecified formulation 2 completed Not Available [facility] 06/22/2023 05:04:28 influenza, unspecified formulation 0 completed Not Available [facility] 06/22/2023 05:04:28 influenza, unspecified formulation 6 completed Not Available [facility] 06/22/2023 05:04:28 polio, unspecified formulation 9 completed Not Available [facility] 06/22/2023 05:04:29 polio, unspecified formulation 4 completed Not Available [facility] 06/22/2023 05:04:29 polio, unspecified formulation 4 completed Not Available [facility] 06/22/2023 05:04:29 polio, unspecified formulation 4 completed Not Available [facility] 06/22/2023 05:04:29 Past Encounters Encounter ID Performer Location Encounter Start Date Encounter Closed Date Diagnosis/Indication Diagnosis SNOMED-CT Code Diagnosis ICD10 Code Diagnosis Note [id number] BURKE MIKE [facility] [address] [place] [address] 04/01/2024 13:04:55 04/01/2024 14:06:28 Removal of subcutaneous contraceptive 852281694 Z30.46 nexplanon successful ly removed. patient tolerated well. given instructio ns for monitoring for infection or bleeding. she will call if any concerns. she will call if decides on alternativ e control method. not currently sexually active. aware that can occur without protection . [id number] MANUELA ARAUJO [facility] [address] [place] [address] 08/26/2024 12:51:24 08/26/2024 13:58:12 Irregular periods 38370325 N92.6 had nexplanon out but has had irregular periods Menorrhagia 918185189 N9 2.0 has been having 7 to 8 day long periods but irregular and very heavy and painful. never had this before being on nexplanon but she was only 15 or so. will get transvagin al and transabdom inal u/s to make sure no fibroid Dysmenorrhea 422493555 N 94.6 during periods only. with heavy bleeding. never had this before Night sweats 72498176 R6 1 Non-menopa usal hot flash 1856747255 86191 R23.2 daily hot flashses for about 2 months Family his tory of polycystic ovary syndrome 940322436 Z84.2 Vaginal odor 737352977 N 89.8 yeast vs. bacteria, suspect bacterial vaginosis [id number] Alejandra Cortesroxy [facility] [address] [place] [address] 09/16/2024 13:25:08 09/16/2024 14:27:49 test positive 014576678 Z32.01 Health Concerns Section Related Observation LastModified by Organization Detai ls LastModified Time None Recorded Concern Status LastModified by Organization Details LastModified Time None Recorded Advance Directives Directive None Recorded Payers Encounter Date Sequence Insurance Name Policy Number Policy Velasco Covered Member ID Velasco Member ID Guarantor Name 04/01/2024 1 [place]: [facility] [id number] Ananth Huntleydge [id number] Ananth Lee Notes Date Note Type Note Provider Name and Address Organization Details Recorded Time 04/01/2024 text/html Lyric is a pleasant 18 year old female here today for a procedure visit for a nexplanon removal. Was placed in 2018. has given verbal consent for removal of nexplanon today. has no allergies to lidocaine or betadine.Decline s other control method at this time. BURKE MIKE [address], [place], [address], [facility], [facility]. 05/12/2024 22:34:07 OBGyn Episode No OBEpisode recorded.
--- OUTSIDE RECORDS SUMMARY | 2024-09-16 15:16 | XMS_ITS | Continuity of Care Document ---
Author Name [facility] Organization [facility] Care Team Providers Care Cluster Bore Operator Name Role Phone [facility] Unavailable Unavailable Problems Combined list of problems from Department of Defense and Veterans Affairs facilities. It does not include entries that were removed or entered in error. Problem Status Onset Date Problem Type Date of Resolution Comments Source Morbid obesity Active Condition Ambulatory Pharmacy Results Combined list of recent chemistry, hematology and other laboratory results from [facility] of Defense and [facility], ranging from 15 months to all on record, depending upon the facility. Order Name Results Value Reference Range Date Interpretation Specimen Comments Source Chemistr y BUN 12 mg/dL 7 - 17 01/05 N [facility] Urinalys is UA Color YELLOW 01/05 [facility] Urinalys is UA Appear Cloudy 1 *NA* (01/05/23 9:53 AM) 01/05 Interpretiv e Data: Reference Range UA pH: ? 5 9 UA Specific [place] ? 1.010-1.025 UA Urobilinoge n? 0.1-1.0 [facility] Urinalys is UA pH 6.0 *NA* (01/05/23 9:53 AM) 01/05 [facility] Urinalys is UA Spec [place] <=1.005 01/05 [facility] Urinalys is UA Glucose Negative *NA* (01/05/23 9:53 AM) 01/05 [facility] Urinalys is UA Ketones Negative (01/05/23 9:53 AM) 01/05 N [facility] Urinalys is UA Blood Negative *NA* (01/05/23 9:53 AM) 01/05 [facility] Urinalys is UA Protein Negative *NA* (01/05/23 9:53 AM) 01/05 [facility] Urinalys is UA Bili Negative *NA* (01/05/23 9:53 AM) 01/05 [facility] Urinalys is UA Urobilinog en 0.2 *NA* (01/05/23 9:53 AM) 01/05 [facility] Urinalys is UA Nitrite POSITIVE 01/05 [facility] Urinalys is UA Leuk Esterase Trace *ABN* (01/05/23 9:53 AM) 01/05 A [facility] Urinalys is UA Clarity CLOUDY 01/05 [facility] Chemistr y Creatinine Level 0.90 mg/dL 0.52 - 1.04 01/05 N [facility] Chemistr y AST 27 U/L 14 - 36 01/05 N [facility] Chemistr y eGFR CKD EPI 94 mL/min/1 .73_m2 01/05 Interpretiv e Data: Estimated Glomerular Filtration Rate (eGFR) calculated using the 2020 Chronic Kidney Disease-Epi demiology (CKD-EPI) Collaborati on creatinine equation; units of measure are mL/min/1.73 m2. Results are only valid for adults (m44nmusr) whose serum creatinine is in steady state. eGFR calculation s are not valid for patients with acute kidney injury and for patients on dialysis. Creatinine- based estimates of kidney function may also be inaccurate in patients with reduced creatinine generation due to decreased muscle mass (e.g., malnutritio n, severe hypoalbumin emia, sacropenia, chronic neuromuscul ar disease, amputations , severe heart failure or liver disease) and in patients with increased creatinine due to increased muscle mass (e.g., muscle builders, anabolic steroids) or increased dietary intake. CKD is diagnosed based on abnormaliti es of kidney structure or function, present for >3 months, with implication s for health and disease. CKD is classified and staged based on cause, eGFR and albuminuria (quantified as urine albumin to creatinine ratio). An eGFR >60 mL/min/1.73 m2 in the absence of increased urine albumin excretion or structural abnormaliti es does not represent CKD eGFR provides only an estimate of measured GFR within ?30% for most patients. As mentioned, nutritional status and muscle mass, among many factors, may lead to inaccuracy in the estimate. Consider ordering the creatinine- cystatin C panel if better accuracy is needed for clinical decision-halima hirsch. Result (mL/min/1.7 3 m2) CKD Stage Interpretat ion e90 G1 Normal 60-89 G2 Mild Decrease 45-59 G3A Mild to Moderate Decrease 30-44 G3B Moderate to Severe Decrease 15-29 G4 Severe Decrease <15 G5 Kidney Failure [facility] Urinalys is UA RBC None Seen 2 (01/05/23 9:53 AM) 01/05 N Interpretiv e Data: Reference Range UA WBC? 0-2 / HPF UA RBC? 0-2/ HPF [facility] Urinalys is UA WBC 5-10 *ABN* (01/05/23 9:53 AM) 01/05 A [facility] Urinalys is UA Bacteria Many *ABN* (01/05/23 9:53 AM) 01/05 A [facility] Urinalys is UA Epi Squam Few *ABN* (01/05/23 9:53 AM) 01/05 A [facility] Urinalys is UA Mucous Many (01/05/23 9:53 AM) 01/05 N [facility] Pharmacy Urinalys is UA Amorph Crystal Moderate (01/05/23 9:53 AM) 01/05 N [facility] Pharmacy Vital Signs Combined list of inpatient and outpatient Vital Signs from [facility] of Defense and Veterans Affairs, ranging from 12 months to all on record, depending upon the facility. Vital Sign Value Date Comments Source Systolic Blood Pressure 125mm[Hg] 01/05/2023 14:35:00 Ambulatory Pharmacy Diastolic Blood Pressure 78mm[Hg] 01/05/2023 14:35:00 Ambulatory Pharmacy Mean Arterial Pressure, Calc 94mm[Hg] 01/05/2023 14:35:00 Ambulatory P harmacy Peripheral Pulse Rate 68bpm 01/05/2023 14:35:00 Ambulatory Pharmacy Respiratory Rate 12br/min 01/05/2023 14:35:00 Ambulatory Pharmacy Temperature Oral 36.8Cel 01/05/2023 14:35:00 Ambulatory Pharmacy BP Site 01/05/2023 14:35:00 Ambul atory Pharmacy Blood Pressure Manual 01/05/2023 14:35:00 Ambulatory Pharmacy Procedures Combined list of: 1) Procedures from Department of Veterans Affairs facilities going back up to [facility] 18 months, not all [place] non-surgical procedures are included; 2) All procedures from the Department of [facility] facilities. Procedure Procedure Type Code Date Perfomer Comments Sourc e No data available for this section Ambulatory P harmacy Social History Combined list of available smoking, tobacco, and other social history from [facility] of Defense and Veterans Affairs facilities. Social History Type Response Date Comment Sourc e Female 12/15/2022 Ambulatory Pha rmacy Sexual Orientation Ambula tory Pharmacy Gender identity [facility] Assessment and Plan Combined list of future care activities from Department of Defense and Veterans Affairs facilities (e.g., assessment and plan notes, appointments, orders, and referrals). Additional future care activities may be listed in the Plan of Care section. Result Assessment and Plan Date Source Assessment and Plan No data available for this section 09/16/2024 Ambulatory Pharmacy Functional Status Combined list of recent functional and cognitive assessments recorded at [facility] [place] Functional [place] Measurement (FIM) Scale: 1 = Total Assistance (Subject = 0% +), 2 = Maximal Assistance (Subject = 25% +), 3 = Moderate Assistance (Subject = 50% +), 4 = Minimal Assistance (Subject = 75% +), 5 = Supervision, 6 = Modified [place] (Device), 7 = Complete [place] (Timely, Safely). Assessment Date/Time Source Assessment Type Assessment Skill Assessment Score Assessment Details No data available for this section
--- OUTSIDE RECORDS SUMMARY | 2024-09-16 15:16 | XMS_ITS | Clinical Summary ---
Author Organization [facility] Address [address] [place] [address] Care Team Providers Care Certified Registered Dental Assistant Name Role Phone Unavailable Primary Care Provider Unavailabl e Encounters Date Type Department Care Team Description 08/27/2024 Lab Requisition [facility] Pathology & Laboratory Medicine - [facility] [address] [place] [address] Outr Resulting Lab, Provider from Last 3 Months Social History Tobacco Use Types Packs/Day Years Used Date Smoking Tobacco: Never Assessed Interpersonal Safety Answer Date Record ed Physically Hurt Never 08/25/2020 Verbally Threaten Not on file 08/25/2020 Comments Unknown Sex and Gender Information Value Date Recorded Sex Assigned at Not on file Legal Sex Female 15:51 EST Gender Identity Not on file Sexual Orientation Not on file Plan of Treatment Health Maintenance Due Date Last Done Comments Hepatitis C Screen 2003 Hepatitis B Vaccine (1 of 3 - 19+ 3-dose series) 09/02 COVID-19 Vaccine ( season) 2024 Procedures Procedure Name Priority Date/Time Associated Diagnosis Comments LH Routine 08/26/2024 13:40 EST FSH Routine 08/26/2024 13:40 EST PROLACTIN Routine 08/26/2024 13:40 EST PROGESTERONE Routine 08/26/2024 13:40 EST ESTRADIOL, ADULTS Routine 08/26/2024 13: 40 EST from Last 3 Months Results * PROLACTIN (08/26/2024 13:40 EST) Prolactin 7.9 See Note ng/mL 08/27/2024 18:08 EST [facility] Comment: NOTE: Female Reference Ranges: PHYSIOLOGICAL STATUS ?REFERENCE RANGE ? Postmenopausal ?1.8 - 20.3 ng/mL ?9.7 - 208.5 ng/mL Non- ?2.8 - 29.2 ng/mL Blood VENOUS BLOOD / Unknown 08/26/2024 13:40 EST 08/27/2024 16:54 EST us Provider Outr Resulting Lab CHEMISTRY & BLOOD GA S ORDERABLES Final Result [facility] [address] [place] [address] * PROGESTERONE (08/26/2024 13:40 EST) Progesterone 0.5 See Table ng/mL 08/27/2024 17:37 EST [facility] Comment: Female Reference Ranges: PHYSIOLOGICAL STATUS ?REFERENCE RANGE ? Pre-Pubertal: ? <= 0.2 ng/mL Menstruating: (Non-) Follicular Phase: ? <= 1.4 ng/mL Luteal Phase: ? 3.3 - 25.6 ng/mL Mid-luteal Phase: ? 4.4 - 28.0 ng/mL Postmenopausal: ? <= 0.7 ng/mL : -------- First Trimester: ?11.2 - 90.0 ng/mL Second Trimester: ? 25.6 - 89.4 ng/mL Third Trimester: ?48.4 - 422.5ng/mL For ectopic , consult a pathologist. Blood VENOUS BLOOD / Unknown 08/26/2024 13:40 EST 08/27/2024 16:54 EST us Provider Outr Resulting Lab CHEMISTRY & BLOOD GA S ORDERABLES Final Result [facility] [address] [place] [address] * ESTRADIOL, ADULTS (08/26/2024 13:40 EST) Estradiol 107 See Note pg/mL 08/27/2024 17:36 EST [facility] Comment: NOTE: FEMALE REFERENCE RANGES: MENSTRUATING ? By cycle day relative to LH peak Follicular ?(-12 to -4 days) ??20-144 pg/mL Midcycle ?(-3 to +2 days) ?? 64-357 pg/mL Luteal ?(+4 to +12 days) ??56-214 pg/mL POSTMENOPAUSAL ?<32 pg/mL *Cross reactivity with Fulvestrant could lead to a falsely elevated estradiol result in patients treated with this drug. Blood VENOUS BLOOD / Unknown 08/26/2024 13:40 EST 08/27/2024 16:54 EST us Provider Outr Resulting Lab CHEMISTRY & BLOOD GA S ORDERABLES Final Result Performing Organization Address [facility] de Phone Number [facility] [address] [place] [address] * LH (08/26/2024 13:40 EST) Luteinizing Hormone 4.0 See Note mIU/mL 08/27/2024 18:08 EST [facility] Comment: NOTE: Female Reference Ranges: Pre-Pubertal: ?<6.0 mIU/mL Menstruating: Follicular Phase(-12 to -4 days: ??1.9 - 12.5 mIU/mL Midcycle(-3 to +2 days): ?8.7 - 76.3 mIU/mL Luteal Phase(+4 to +12 days): ? 0.5 - 16.9 mIU/mL Post Menopausal: 15.9 - 54.0 mIU/mL Blood VENOUS BLOOD / Unknown 08/26/2024 13:40 EST 08/27/2024 16:54 EST us Provider Outr Resulting Lab CHEMISTRY & BLOOD GA S ORDERABLES Final Result Performing Organization Address [facility] Co de Phone Number [facility] [address] [place] [address] * FSH (08/26/2024 13:40 EST) FSH 4.1 See Note mIU/mL 08/27/2024 18:08 EST [facility] Blood VENOUS BLOOD / Unknown 08/26/2024 13:40 EST 08/27/2024 16:54 EST Narrative [facility] - 08/27/2024 18:08 EST NOTE: Female FSH Reference Ranges (Menstruating): PHYSIOLOGICAL STATUS ? REFERENCE RANGE ? Follicular (-12 to -4 days): ?? 2.5 - 10.2 mIU/mL Midcycle (-3 to +2 days): ?3.4 - 33.4 mIU/mL Luteal (+4 to +12 days): ? 1.5 - 9.1 mIU/mL Postmenopausal: ?23.0 - 116.3 mIU/mL Reference Ranges for pediatric non-menstruating female patients have not been established. us Provider Outr Resulting Lab CHEMISTRY & BLOOD GA S ORDERABLES Final Result [facility] [address] [place] [address] from Last 3 Months
--- OUTSIDE RECORDS SUMMARY | 2024-09-16 15:16 | XMS_ITS | Continuity of Care Document ---
Author Organization [facility] Address [address] [place] [address] Encounter [facility] NBR [id number] Date(s): 08/18/23 - 08/18/23 [facility] [address] [place] [address]- Encounter Diagnosis Labial cyst(Discharge Diagnosis) - 08/18/23 Discharge Disposition: Home or Self Care Attending Physician: Nelly Cooney APRN Medications Nexplanon 0 Refill(s) Start Date: 08/18/23 Status: Ordered Vital Signs Most recent to oldest [Reference Range]: 1 Temperature Tympanic [36.6-38.1 Deg C] 3 6.5 Deg C *LOW* (08/18/23 5:05 PM) Peripheral Pulse Rate [60-100 bpm] 85 bp m (08/18/23 5:05 PM) Respiratory Rate [12-24 br/min] 17 br/mi n (08/18/23 5:05 PM) Blood Pressure [90-140/60-90 mmHg] 106/6 8mmHg (08/18/23 5:05 PM) Mean Arterial Pressure, Cuff [70-110 mmH g] 81 mmHg (08/18/23 5:05 PM) Weight 99.79 kg (08/18/23 5:05 PM) Weight Measured (lbs) 219.999 lb (08/18/23 5:05 PM) Weight Dosing 99.790 kg (08/18/23 5:05 PM) Weight Percentile 98.65 1 (08/18/23 5:05 PM) 1Result Comment: ^~:!Percentile Source -[facility] Discharge Instructions Patient Education 08/18/2023 16:11:11 Ingrown Hair Ingrown Hair An ingrown hair is a hair that curls and re-enters the skin instead of growing straight out of the skin. An ingrown hair can develop in any part of the skin that hair is removed from. An ingrown hairmay cause small pockets of infection. What are the causes? An ingrown hair may be caused by: ??? Shaving. ??? Tweezing. ??? Waxing. ??? Using a hair removal cream. What increases the risk? You are more likely to develop this condition if you have curly hair. What are the signs or symptoms? Symptoms of an ingrown hair may include: ??? Small bumps on the skin. The bumps may be filled with pus. ??? Pain. ??? Itching. How is this diagnosed? An ingrown hair is diagnosed by a skin exam. How is this treated? Treatment is often not needed unless the ingrown hair has caused an infection. If needed, treatmentmay include: ??? Applying prescription creams to the skin. This can help with inflammation. ??? Applying warm compresses to the skin. This can help soften the skin. ??? Taking antibiotic medicine. An antibiotic may be prescribed if the infection is severe. ??? Retracting and releasing the ingrown hair tips. Follow these instructions at home: Medicines ??? Take, apply, or use lytp-ftm-uyxuftd and prescription medicines only as told by your health care provider. This includes any prescription creams. ??? If you were prescribed an antibiotic medicine, take it as told by your health care provider. Donot stop using the antibiotic even if you start to feel better. General instructions ??? Do not shave irritated areas of skin. You may start shaving these areas again once the irritation has gone away. ??? To help remove ingrown hairs on your face, you may use a facial sponge in a gentle circular motion. ??? Do not pick or squeeze the irritated area of skin as this may cause infection and scarring. Managing pain and swelling ??? If directed, apply heat to the affected area as often as told by your health care provider. Usethe heat source that your health care provider recommends, such as a moist heat pack or a heating pad. ??? Place a towel between your skin and the heat source. ??? Leave the heat on for 20???30 minutes. ??? Remove the heat if your skin turns bright red. This is especially important if you are unable to feel pain, heat, or cold. You may have a greater risk of getting burned. How is this prevented? Shower before shaving. ??? Wrap areas that you are going to shave in warm, moist wraps for several minutes before shaving.The warmth and moisture help to soften the hairs and makes ingrown hairs less likely. ??? Use thick shaving gels. ??? Use a razor that cuts hair slightly above your skin, or use an electric shaver with a long shave setting. ??? Shave in the direction of hair growth. ??? Avoid making multiple razor strokes. ??? Apply a moisturizing lotion after shaving. Summary ??? An ingrown hair is a hair that curls and re-enters the skin instead of growing straight out of the skin. ??? Treatment is often not needed unless the ingrown hair has caused an infection. ??? Take, apply, or use vtzy-oha-wgtasqz and prescription medicines only as told by your health care provider. This includes any prescription creams. ??? Do not shave irritated areas of skin. You may start shaving these areas again once the irritation has gone away. ??? If directed, apply heat to the affected area. Use the heat source that your health care provider recommends, such as a moist heat pack or a heating pad. This information is not intended to replace advice given to you by your health care provider. Make sure you discuss any questions you have with your health care provider. Document Revised: 05/25/2022 Document Reviewed: 05/25/2022 [employer] 2000 Patient Education ?? 2022 [employer] Physician Outpatient Note * Nelly Cooney, HEALTH PHYSICIST: PERFORM Event Display: Office Clinic Note Physician Authored Date: [id number] JONE NUNEZ :2005 Age:17 years Sex:Female Visit Date:08/18/2023 Chief Complaint cyst in vaginal area History of Present Illness Patient is a 17-year-old female who presents today with a chief complaint of a raised and painful??probable cyst??on the labia. ??She states that??she??has noticed increased??pain and swelling, she has been doing warm compresses, did note positive??drainage today. ??She states that she has had simil ar??exacerbations of this problem in the past.?? Denies fever chills or bodyaches Review of Systems see hpi Physical Exam Vitals & Measurements T:??36.5?C ??(Tympanic)?? HR:??85??(Peripheral)?? RR:??17?? BP:??106/68?? SpO2:??99%?? WT:??99.79??kg?? WT:??98.65??(Percentile)?? :??External genitalia??notes 1 cm raised??erythematous??cyst along the left??labia majora/minora.?? Draining serosanguineous fluid.?? No significant surrounding firmness or tenderness, no lymphadenopathy Medical Decision Making: Patient was evaluated for cyst on the labia, this??does appear to be self resolving. ??We did discuss??different ways to decrease??chances of recurrence.?She was encouraged to continue warm compresses to facilitate drainage, monitoring for any worsening signs or symptoms. ??I did provide her??contact information to establish with women's health. Assessment/Plan 1.??Labial cyst??N90.7 Patient Instructions I would continue with the warm compresses to facilitate drainage.?? If you have worsening swelling,fever chills or bodyaches then you should return for reevaluation.?? Recommend reaching out to [employer] to establish care??you may reach them at [phone] Patient Education Ingrown Hair Problem List/Past Medical History Ongoing No qualifying data Historical No qualifying data Medications Nexplanon Allergies No active allergies Electronically Signed on 08/18/23 05:56 PM Nelly Cooney APRN Outpatient Summary note * Nelly Cooney APRN: PERFORM Event Display: Ambulatory Patient Summary Authored Date: [id number] JONE NUNEZ DOB:2005 Age:17 years Sex:Female Visit Date:08/18/2023 Ambulatory Visit Instructions We would like to thank you for allowing us to assist you with your healthcare needs. The following includes patient education materials and information regarding your injury/illness. Your Next Steps Instructions From Your Care Team I would continue with the warm compresses to facilitate drainage.?? If you have worsening swelling,fever chills or bodyaches then you should return for reevaluation.?? Recommend reaching out to [employer] to establish care??you may reach them at [phone] Medications What When Instructions Unchanged etonogestrel (Nexplanon) Your Summary Your Care Team Attending Physician - Nelly Cooney APRN Discharge Vitals Temperature??(Tympanic) 97.7 ??F (36.5 ??C) Heart Rate??(Peripheral) 85 Respiratory Rate?? 17 Blood Pressure?? 106/68?? Weight?? 220.04 lb (99.79 kg) Allergies No active allergies Education Materials Ingrown Hair An ingrown hair is a hair that curls and re-enters the skin instead of growing straight out of the skin. An ingrown hair can develop in any part of the skin that hair is removed from. An ingrown hairmay cause small pockets of infection. What are the causes? An ingrown hair may be caused by: ? Shaving. ? Tweezing. ? Waxing. ? Using a hair removal cream. What increases the risk? You are more likely to develop this condition if you have curly hair. What are the signs or symptoms? Symptoms of an ingrown hair may include: ? Small bumps on the skin. The bumps may be filled with pus. ? Pain. ? Itching. How is this diagnosed? An ingrown hair is diagnosed by a skin exam. How is this treated? Treatment is often not needed unless the ingrown hair has caused an infection. If needed, treatmentmay include: ? Applying prescription creams to the skin. This can help with inflammation. ? Applying warm compresses to the skin. This can help soften the skin. ? Taking antibiotic medicine. An antibiotic may be prescribed if the infection is severe. ? Retracting and releasing the ingrown hair tips. Follow these instructions at home: Medicines ? Take, apply, or use dtpp-fnm-dwppjxv and prescription medicines only as told by your health care provider. This includes any prescription creams. ? If you were prescribed an antibiotic medicine, take it as told by your health care provider. Do notstop using the antibiotic even if you start to feel better. General instructions ? Do not shave irritated areas of skin. You may start shaving these areas again once the irritation has gone away. ? To help remove ingrown hairs on your face, you may use a facial sponge in a gentle circular motion. ? Do not pick or squeeze the irritated area of skin as this may cause infection and scarring. Managing pain and swelling ? If directed, apply heat to the affected area as often as told by your health care provider. Use theheat source that your health care provider recommends, such as a moist heat pack or a heating pad. ? Place a towel between your skin and the heat source. ? Leave the heat on for 20???30 minutes. ? Remove the heat if your skin turns bright red. This is especially important if you are unable to feel pain, heat, or cold. You may have a greater risk of getting burned. How is this prevented? Shower before shaving. ? Wrap areas that you are going to shave in warm, moist wraps for several minutes before shaving. Thewarmth and moisture help to soften the hairs and makes ingrown hairs less likely. ? Use thick shaving gels. ? Use a razor that cuts hair slightly above your skin, or use an electric shaver with a long shave setting. ? Shave in the direction of hair growth. ? Avoid making multiple razor strokes. ? Apply a moisturizing lotion after shaving. Summary ? An ingrown hair is a hair that curls and re-enters the skin instead of growing straight out of the skin. ? Treatment is often not needed unless the ingrown hair has caused an infection. ? Take, apply, or use ddbw-yjv-vzcydla and prescription medicines only as told by your health care provider. This includes any prescription creams. ? Do not shave irritated areas of skin. You may start shaving these areas again once the irritation has gone away. ? If directed, apply heat to the affected area. Use the heat source that your health care provider recommends, such as a moist heat pack or a heating pad. This information is not intended to replace advice given to you by your health care provider. Make sure you discuss any questions you have with your health care provider. Document Revised: 05/25/2022 Document Reviewed: 05/25/2022 [employer] 2000 Patient Education ?? 2022 [employer] Electronically Signed on: 08/18/2023 17:14 ESTSigned by:MATTY Cooney APRN: PERFORM Event Display: Ambulatory Patient Summary Authored Date: [id number] JONE NUNEZ :2005 Age:17 years Sex:Female Visit Date:08/18/2023 Ambulatory Visit Instructions We would like to thank you for allowing us to assist you with your healthcare needs. The following includes patient education materials and information regarding your injury/illness. Medications What When Instructions Unchanged etonogestrel (Nexplanon) Your Summary Your Care Team Attending Physician - Nelly Cooney APRN Discharge Vitals Temperature??(Tympanic) 97.7 ??F (36.5 ??C) Heart Rate??(Peripheral) 85 Respiratory Rate?? 17 Blood Pressure?? 106/68?? Weight?? 220.04 lb (99.79 kg) Allergies No active allergies Education Materials Ingrown Hair An ingrown hair is a hair that curls and re-enters the skin instead of growing straight out of the skin. An ingrown hair can develop in any part of the skin that hair is removed from. An ingrown hairmay cause small pockets of infection. What are the causes? An ingrown hair may be caused by: ? Shaving. ? Tweezing. ? Waxing. ? Using a hair removal cream. What increases the risk? You are more likely to develop this condition if you have curly hair. What are the signs or symptoms? Symptoms of an ingrown hair may include: ? Small bumps on the skin. The bumps may be filled with pus. ? Pain. ? Itching. How is this diagnosed? An ingrown hair is diagnosed by a skin exam. How is this treated? Treatment is often not needed unless the ingrown hair has caused an infection. If needed, treatmentmay include: ? Applying prescription creams to the skin. This can help with inflammation. ? Applying warm compresses to the skin. This can help soften the skin. ? Taking antibiotic medicine. An antibiotic may be prescribed if the infection is severe. ? Retracting and releasing the ingrown hair tips. Follow these instructions at home: Medicines ? Take, apply, or use atmn-esv-wacviyj and prescription medicines only as told by your health care provider. This includes any prescription creams. ? If you were prescribed an antibiotic medicine, take it as told by your health care provider. Do notstop using the antibiotic even if you start to feel better. General instructions ? Do not shave irritated areas of skin. You may start shaving these areas again once the irritation has gone away. ? To help remove ingrown hairs on your face, you may use a facial sponge in a gentle circular motion. ? Do not pick or squeeze the irritated area of skin as this may cause infection and scarring. Managing pain and swelling ? If directed, apply heat to the affected area as often as told by your health care provider. Use theheat source that your health care provider recommends, such as a moist heat pack or a heating pad. ? Place a towel between your skin and the heat source. ? Leave the heat on for 20???30 minutes. ? Remove the heat if your skin turns bright red. This is especially important if you are unable to feel pain, heat, or cold. You may have a greater risk of getting burned. How is this prevented? Shower before shaving. ? Wrap areas that you are going to shave in warm, moist wraps for several minutes before shaving. Thewarmth and moisture help to soften the hairs and makes ingrown hairs less likely. ? Use thick shaving gels. ? Use a razor that cuts hair slightly above your skin, or use an electric shaver with a long shave setting. ? Shave in the direction of hair growth. ? Avoid making multiple razor strokes. ? Apply a moisturizing lotion after shaving. Summary ? An ingrown hair is a hair that curls and re-enters the skin instead of growing straight out of the skin. ? Treatment is often not needed unless the ingrown hair has caused an infection. ? Take, apply, or use ourj-vhy-qzpaigv and prescription medicines only as told by your health care provider. This includes any prescription creams. ? Do not shave irritated areas of skin. You may start shaving these areas again once the irritation has gone away. ? If directed, apply heat to the affected area. Use the heat source that your health care provider recommends, such as a moist heat pack or a heating pad. This information is not intended to replace advice given to you by your health care provider. Make sure you discuss any questions you have with your health care provider. Document Revised: 05/25/2022 Document Reviewed: 05/25/2022 [employer] 2000 Patient Education ?? 2022 [employer] Electronically Signed on: 08/18/2023 17:12 ESTSigned by:MATTY
--- OUTSIDE RECORDS SUMMARY | 2024-09-16 15:16 | XMS_ITS | Referral Summary ---
Author Organization 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 Name Role Phone Unavailable Primary Care Provider Unavailabl e Encounters Date Type Department Care Team Description 08/27/2024 Lab Requisition [facility] Pathology & Laboratory Medicine - [facility] [address] [place] [address] Outr Resulting Lab, Provider from Last 3 [...] Orientation Not on file Plan of Treatment Not on file Procedures Procedure Name Priority Date/Time Associated Diagnosis Comments LH Routine 08/26/2024 13:40 EST FSH Routine 08/26/2024 13:40 EST PROLACTIN Routine 08/26/2024 13:40 EST PROGESTERONE Routine 08/26/2024 13:40 EST ESTRADIOL, ADULTS Routine 08/26/2024 13: 40 EST from Last 3 Months Results * PROLACTIN (08/26/2024 13:40 EST) Prolactin 7.9 See Note ng/mL 08/27/2024 18:08 EST [facility] Comment: NOTE: Female Reference Ranges: PHYSIOLOGICAL STATUS ?REFERENCE RANGE ? Postmenopausal ?1.8 - 20.3 ng/mL ?9.7 - 208.5 ng/mL Non- ?2.8 - 29.2 ng/mL Blood VENOUS BLOOD / Unknown 08/26/2024 13:40 EST 08/27/2024 16:54 EST us Provider Outr Resulting Lab CHEMISTRY & BLOOD GA S ORDERABLES Final Result [facility] [address] [place] [address] * PROGESTERONE (08/26/2024 13:40 EST) Progesterone 0.5 See Table ng/mL 08/27/2024 17:37 EST [facility] Comment: Female Reference Ranges: [...] Unknown 08/26/2024 13:40 EST 08/27/2024 16:54 EST Provider Outr Resulting Lab CHEMISTRY & BLOOD GA S ORDERABLES Final Result Performing Organization Address [facility] de Phone Number [facility] [address] [place] [address] * ESTRADIOL, ADULTS (08/26/2024 13:40 EST) Estradiol 107 See Note pg/mL 08/27/2024 17:36 EST [facility] Comment: NOTE: FEMALE REFERENCE [...] S ORDERABLES Final Result Performing Organization Address [facility] de Phone Number [facility] [address] [place] [phone] * LH (08/26/2024 13:40 EST) Luteinizing Hormone 4.0 See Note mIU/mL 08/27/2024 18:08 EST [facility] Comment: NOTE: Female Reference [...] & BLOOD GA S ORDERABLES Final Result [facility] [address] [place] [address] * FSH (08/26/2024 13:40 EST) FSH 4.1 See Note mIU/mL 08/27/2024 18:08 EST [facility] Blood VENOUS BLOOD / Unknown 08/26/2024 13:40 EST 08/27/2024 16:54 EST Narrative [facility] - 08/27/2024 18:08 EST [...] & BLOOD GA S ORDERABLES Final Result [facility] [address] [place] [address] from Last 3 Months
--- OUTSIDE RECORDS SUMMARY | 2024-09-16 15:16 | XMS_ITS | Encounter Summary ---
Author Organization [facility] Address [address] [place] [address] Care Team Providers Care Correction Lieutenant Name Role Phone Unavailable Primary Care Provider Unavailabl e Encounter Details Date Type Department Care Team (Late st Contact Info) Description 08/27/2024 Lab Requisition [facility] Pathology & Laboratory Medicine - [facility] [address], [place] [address] Outr Resulting Lab, Provider Social History Tobacco Use Types Packs/Day Years Used Date Smoking Tobacco: Never Assessed Interpersonal Safety Answer Date Record ed Physically Hurt Never 08/25/2020 Verbally Threaten Not on file 08/25/2020 Comments Unknown Sex and Gender Information Value Date Recorded Sex Assigned at Not on file Legal Sex Female 15:51 EST Gender Identity Not on file Sexual Orientation Not on file documented as of this encounter Plan of Treatment Not on file documented as of this encounter Procedures Procedure Name Priority Date/Time Associated Diagnosis Comments PROLACTIN Routine 08/26/2024 13:40 EST PROGESTERONE Routine 08/26/2024 13:40 EST ESTRADIOL, ADULTS Routine 08/26/2024 13: 40 EST LH Routine 08/26/2024 13:40 EST FSH Routine 08/26/2024 13:40 EST documented in this encounter Results * LH (08/26/2024 13:40 EST) Luteinizing Hormone 4.0 See Note mIU/mL 08/27/2024 18:08 EST [facility] Comment: NOTE: Female Reference [...] & BLOOD GA S ORDERABLES Final Result [facility] [address] [place] [id number] * FSH (08/26/2024 13:40 EST) FSH 4.1 See Note mIU/mL 08/27/2024 18:08 EST [facility] Blood VENOUS BLOOD / Unknown 08/26/2024 13:40 EST 08/27/2024 16:54 EST Narrative [facility] - 08/27/2024 18:08 EST [...] non-menstruating female patients have not been established. Provider Outr Resulting Lab CHEMISTRY & BLOOD GA S ORDERABLES Final Result Performing Organization Address [facility] de Phone Number [facility] [address] [place] [address] * PROLACTIN (08/26/2024 13:40 EST) Prolactin 7.9 See Note ng/mL 08/27/2024 18:08 EST [facility] Comment: NOTE: Female Reference Ranges: PHYSIOLOGICAL STATUS ?REFERENCE RANGE ? Postmenopausal ?1.8 - 20.3 ng/mL ?9.7 - 208.5 ng/mL Non- ?2.8 - 29.2 ng/mL Blood VENOUS BLOOD / Unknown 08/26/2024 13:40 EST 08/27/2024 16:54 EST us Provider Outr Resulting Lab CHEMISTRY & BLOOD GA S ORDERABLES Final Result Performing Organization Address [facility] de Phone Number [facility] [address] [place] [address] * PROGESTERONE (08/26/2024 13:40 EST) Progesterone 0.5 See Table ng/mL 08/27/2024 17:37 EST [facility] Comment: Female Reference Ranges: [...] & BLOOD GA S ORDERABLES Final Result [facility] [address] [place] [address] * ESTRADIOL, ADULTS (08/26/2024 13:40 EST) Estradiol 107 See Note pg/mL 08/27/2024 17:36 EST [facility] Comment: NOTE: FEMALE REFERENCE [...] & BLOOD GA S ORDERABLES Final Result [facility] [address] [place] [address] documented in this encounter Visit Diagnoses Not on filedocumented in this encounter
--- OUTSIDE RECORDS SUMMARY | 2024-09-16 15:16 | XMS_ITS | Encounter Summary ---
Author Organization [facility] Address [address] [place] [address] Care Team Providers Care Manager Of Hospital Name Role Phone Unavailable Primary Care Provider Unavailabl e Encounter Details Date Type Department Care Team (Late st Contact Info) Description 08/24/2020 Lab Requisition [facility] Pathology & Laboratory Medicine - [facility] [address] [place] [address] Outr Resulting Lab, Provider Social History Tobacco [...] Procedure Name Priority Date/Time Associated Diagnosis Comments HSV (HERPES SIMPLEX VIRUS) MOLECULAR DETECTION, PCR Routine 08/24/2020 12:05 EST documented in this encounter Results * (ABNORMAL) HERPES SIMPLEX VIRUS MOLECULAR DETECTION, PCR (08/24/2020 12:05 EST) Herpes Simplex Virus Molecular Detection 1, PCR Positive(A) Negative 08/25/2020 14:00 EST [facility] Herpes Simplex Virus Molecular Detection 2, PCR Negative Negative 08/25/2020 14:00 EST [facility] Swab ORAL CAVITY SPECIMEN / Unknown 08/24/2020 12:05 EST 08/24/2020 22:36 EST us Provider Outr Resulting Lab MICROBIOLOGY - GENER AL ORDERABLES Final Result [facility] [address] [place] [address] documented in this encounter Visit Diagnoses Not on filedocumented in this encounter
[2024-09-16 16:02] LABS: HCG Quant, Pregnancy 638 mIU/mL (1-3)
== END 2024-09-16 15:15 | disposition home or self-care (01) ==
LOC: NCHCN 15:14
PROVIDERS: Visit Provider Nurse Practitioner Family
DX: Z32.01 Encounter for pregnancy test, result positive (principal)
CPT/HCPCS: 84702

== ENCOUNTER 2024-09-20 15:53 | Emergency (ER) | payer BC, SELFPAY ==
[2024-09-20 15:56] VITALS: BP 138/89; PULSE 74; RESP 16; TEMP 36.4; O2SAT 99
[2024-09-20 16:00] VITALS: PULSE 68; RESP 16; TEMP 36.4; O2SAT 99
--- OUTSIDE RECORDS SUMMARY | 2024-09-20 16:26 | XMS_ITS | Continuity of Care Document ---
Author Organization [place] - [facility] [place] [address] Assessment No assessment recorded. Plan of Treatment Reminders Order Date Submit Date Provider Last Modified By Organization Details Last Modified Time Details Appointments Follow Up 30 2024 12:30P M GAYLE CHOW Not available Not available Not available Lab beta-HCG , quantita tive, serum or plasma - [facility] 2024 025 [facility] (Registration ), [address] [place] [address] Dr, [place], [address], 09/17/2024 15:36:02 Referral None recorded . Procedures None recorded . Surgeries None recorded . Imaging None recorded . Medication Orders None recorded . Patient TargetsNo targets recorded. Patient Instructions Encounter Date Encounter Id Patient Instructions Last Modified By Organization Details Last Modified Time 09/16/2024 [id number] Start vitamin's. Consider treating BV - you have an active RX for METRONIDAZOLE. Follow up with OB on September 23. Guidelines for and care - Here are some general guidelines to consider and to discuss further with your WELL SERVICING RIG OPERATOR during your first appointment. Your WELL SERVICING RIG OPERATOR will take the time to address additional questions and/or any concerns you may have; and will monitor your health and your baby's health. Depending on your preference, you may work with a medical doctor or an advanced practitioner (such as a nurse practitioner, physician? s lpn or medical assistant, or a physical ther). General dietary guidelines? minimize use of artificial sweeteners; limit consumption of caffeine to 150 to 300 mg a day or less; avoid unpasteurized dairy products and soft cheeses; avoid raw eggs; routine vegetables should be washed thoroughly before eating; avoid herbal teas containing chamomile, licorice, peppermint, or raspberry; avoid undercooked meat; avoid sharp, swordfish, mackerel, tuna steaks, and limit intake of other fish to 12 ounces or less per week. Please start taking 400 mcg of folate acid supplementation daily. Folate is found in xljv-pog-txyeken vitamins. Folic acid helps to prevent neural tube defects. At least 30 minutes of moderate exercise on most days of the week is a reasonable activity level for most women. Do not start any new gvhl-cis-ggbvlob medications, including supplements, without first discussing with your WELL SERVICING RIG OPERATOR. No amount of alcohol consumption has been proven safe during . Illicit drug use can directly affect your baby's health -if you are at risk for illicit drug use, please discuss with your provider. We have many specialized interventions that can help. Avoid tobacco use during . During your first several visits, your WELL SERVICING RIG OPERATOR will likely discuss additional testing, including diabetes, blood type, thyroid testing, STD testing, and whether genetic testing is indicated. Your WELL SERVICING RIG OPERATOR will review the topics above in depth, as well as additional recommendations and screenings to keep you and baby healthy. Please let us know if you do not hear from WELL SERVICING RIG OPERATOR within the next few days; and/or you are not able to schedule your first appointment with your WELL SERVICING RIG OPERATOR within the next few weeks. Please feel free to follow-up at any time during your if you have any questions or concerns -we are always here to help. Not available 09/16/2024 17:05:41 Reason for Referral None Reported. Results Created Date Observation Date Name Description Value Unit Range Abnormal Flag Note LastModifiedBy Organization Detail LastModifiedTime 09/15/1909/15/2024 US, pelvi s, trans abdom inal + trans vagin al Patien t Name: Pearl Carlin Unit #: [id number] Loc: DI Orderi ng Provid er: Gayle Chow Accadolfo t #: [id number] Status : REG CLI Primar y Care Provid er: Unknow n,Unkn own Date of Exam: 11/04 Sex: F Admiss ion Date: : 2005 Age: 19 Exam(s ) US PELVIS TRANSV AGINAL EXAM: US PELVIS TRANSV AGINAL CLINIC AL HISTOR Y: Menorr hagia, N92.0, excess janina and freque nt menstr uation w/regu lar [...] report in error, please notify us immedi aparnaly at [phone] and return the origin al report to us at the addres s above. Thank- you. JONEL [facility] (Radiology) [facility] [place], [address], 09/19/2024 09:35:12 09/15/19 25 09/15/2024 US, pelvi s, trans abdom inal + trans vagin al No observ ation record ed. JONEL [facility] (Radiology) [address] [place], [address], 09/19/2024 09:35:13 Result Notes None recorded. Problems Name Problem SNOMED Code Status Onset Date Resolution Date Notes Provider Name and Address Organization Details Recorded Time Irregula r periods 83758836 Active [address], [place], [address] , [facility] 13:13:49 Menorrha rasheed 769572553 Active [address], [place], [address] , [facility] 13:14:02 Dysmenor evelyn 038127573 Active [address], [place], [address] , [facility] 13:14:09 Night sweats 68145587 Active [address], [place], [address] , [facility] 13:15:26 Non-kain pausal hot flash 28273422053 9109 Active [address], [place], [address] , [facility] 13:15:36 Vaginal odor 206279767 Active [address], [place], [address] , [facility] 13:39:07 Bacteria l vaginosi s 388718552 Active 2024 LEILANI MEI [address], [place], [address] , [facility] 5 12:29:08 Pregnanc y test positive 487715300 Active 2024 [address], [place], [address] , [place] [facility] 5 17:07:57 Acute bronchit is 96621097 Completed 201501/11/2016 Problem Code: J20.9; Problem Code Type: ICD-10; Not Available [facility] 3 05:13:25 Acute pharyngi tis 278755863 Completed 201605/02/2017 Problem Code: J02.9; Problem Code Type: ICD-10; Not Available [facility] 3 05:13:25 Fatigue 70988625 Active 2022 Problem Code: R53.83; Problem Code Type: ICD-10; Not Available [facility] 3 05:13:25 Cognitiv e deficit in attentio n 82376730317 9100 Active 202211/20/19 23 - Comments only - Gayle Chow DISPLAY CARVER - Referral to [facility] nurse practiti meredith for full evaluati on for possible ADD per patient request. Problem Code: R41.840; Problem Code Type: ICD-10; Not Available [facility] 3 05:13:25 Abnormal weight gain 734211764 Active 202211/20/19 23 - Comments only - Gayle Chow DISPLAY CARVER - Screenin g labs today ordered. We will follow-u p for continue d discussi on about weight gain, exercise , diet restrict ions as well as possible initiati on of trial weight loss meds if needed. Problem Code: R63.5; Problem Code Type: ICD-10; Not Available [facility] 3 05:13:25 Irritabi lity and anger 322923104 Active 2022 Problem Code: R45.4; Problem Code Type: ICD-10; Not Available [facility] 3 05:13:25 Anxiety disorder 538161015 Active 202211/20/19 23 - Comments only - Gayle Chow DISPLAY CARVER - We will estabomeros h with one of our counselo rs here. Problem Code: F41.9; Problem Code Type: ICD-10; Not Available [facility] 3 05:13:25 Contrace ption care manageme nt Active 2022 Problem Code: Z30.9; Problem Code Type: ICD-10; Not Available [facility] 3 05:13:26 Family history of endocrin e disorder s 242264126 Active 2022 Not Available [facility] 3 05:13:26 Body mass index 40+ - severely obese 514319970 Active 2022 Problem Code: Z68.41; Problem Code Type: ICD-10; Not Available [facility] 3 05:13:26 Counseli ng Completed 202212/10/2022 11/20/19 23 - Comments only - Gayle Chow DISPLAY CARVER - Now radha boyd on my panel. We will follow-u p in 3 months for check-in on weight gain and chronic conditio ns. Problem Code: Z71.89; Problem Code Type: ICD-10; Not Available [facility] 3 05:13:26 Contrace ption care manageme nt Completed 201705/09/2023 Problem Code: Z30.9; Problem Code Type: ICD-10; Not Available [facility] 3 05:13:38 Abnormal weight loss 203774294 Completed 201806/03/2020 Problem Code: R63.4; Problem Code Type: ICD-10; Not Available [facility] 3 05:13:39 Stomatit is 30225663 Completed 202002/01/2021 Problem Code: K12.1; Problem Code Type: ICD-10; Not Available [facility] 3 05:13:42 Adult health examinat ion Completed 201811/10/2022 Problem Code: Z00.00; Problem Code Type: ICD-10; Not Available [facility] 3 05:13:43 Anxiety 19478316 Completed 201911/10/2022 Problem Code: F41.8; Problem Code Type: ICD-10; Not Available [facility] 3 05:13:43 Counseli adriano Completed 201711/10/2022 Problem Code: Z71.89; Problem Code Type: ICD-10; Not Available [facility] 3 05:13:46 Disorder of soft tissue 45137200 Completed 201902/01/2021 Problem Code: M79.89; Problem Code Type: ICD-10; Not Available [facility] 3 05:13:47 Generali zed anxiety disorder 14169055 Completed 201806/03/2020 Problem Code: F41.1; Problem Code Type: ICD-10; Not Available [facility] 3 05:13:47 Problem Notes None recorded. Procedures Surgical History Date Name Laterality Status Provider Name and Address Organization Details Recorded Time 4 Control Implant Removal completed [address], [place], [address], [facility] 05/12/2024 22:31:54 Imaging Results None recorded. Procedure Notes None recorded. Medical Equipment None [...] Available Not Available Nasonex 50 mcg/actua tion Jackson 07/27 completed Not Available Not Available Not [...] Not Available Vitals Date Recorded Body height Body mass index (BMI) Body weight Body temperature Heart rate Oxygen saturation Oxygen saturation in Arterial blood by Pulse oximetry Systolic blood pressure Diastolic blood pressure Provider Name and Address Organization Details Last Updated DateTime 5 165.1 cm 39.7 kg/m2 787602. 78 g 98.1 [degF] 120 /min 98 % 98 % 120 mm[Hg] 78 mm[Hg] Tara Fabian MA [facility] 13:41:53 Social History Question Answer Notes LastModified by Organizat ion Details LastModified Time Tobacco Smoking Status Never Smoker MARKO LEONG RN null, [facility] 04/01/2024 13:41:05 Do You Or Have You [...] Counseling Provided? 08/26/2024 Cutting Back Significantly Since STEPH March 2024 Information not available 08/26/2024 Do [...] Recorded Time MMR 9 completed Not Available [facility] 06/22/2023 05:04:22 MMR 5 completed Not Available [facility] 06/22/2023 05:04:22 DTaP, unspecified formulation 9 completed Not Available [facility] 06/22/2023 05:04:23 DTaP, unspecified formulation 4 completed Not Available [facility] 06/22/2023 05:04:23 DTaP, unspecified formulation 5 completed Not Available [facility] 06/22/2023 05:04:23 DTaP, unspecified formulation 4 completed Not Available [facility] 06/22/2023 05:04:23 DTaP, unspecified formulation 4 completed Not Available [facility] 06/22/2023 05:04:23 meningococcal MCV4P 6 completed Not Available [facility] 06/22/2023 05:04:23 Tdap 6 completed Not Available [facility] 06/22/2023 05:04:24 Influenza, split virus, quadrivalent, PF 9 completed Not Available [facility] 06/22/2023 05:04:24 Influenza, split virus, quadrivalent, PF 0 completed Not Available [facility] 06/22/2023 05:04:24 Influenza, split virus, quadrivalent, PF 7 completed Not Available [facility] 06/22/2023 05:04:24 Pneumococcal Conjugate, unspecified formulation 5 completed Not Available [facility] 06/22/2023 05:04:24 Pneumococcal Conjugate, unspecified formulation 4 completed Not Available [facility] 06/22/2023 05:04:24 Pneumococcal Conjugate, unspecified formulation 4 completed Not Available [facility] 06/22/2023 05:04:25 Pneumococcal Conjugate, unspecified formulation 4 completed Not Available [facility] 06/22/2023 05:04:25 HPV9 8 completed Not Available [facility] 06/22/2023 05:04:25 HPV9 9 completed Not Available [facility] 06/22/2023 05:04:25 HPV9 7 completed Not Available [facility] 06/22/2023 05:04:25 Hib, unspecified formulation 4 completed Not Available [facility] 06/22/2023 05:04:26 Hib, unspecified formulation 4 completed Not Available [facility] 06/22/2023 05:04:26 Hib, unspecified formulation 4 completed Not Available [facility] 06/22/2023 05:04:26 COVID-19, mRNA, LNP-S, PF, 30 mcg/0.3 mL dose 1 completed Not Available [facility] 06/22/2023 05:04:26 COVID-19, mRNA, LNP-S, PF, 30 mcg/0.3 mL dose 1 completed Not Available [facility] 06/22/2023 05:04:26 varicella 9 completed Not Available [facility] 06/22/2023 05:04:26 varicella 5 completed Not Available [facility] 06/22/2023 05:04:26 Hep B, unspecified formulation 4 completed Not Available [facility] 06/22/2023 05:04:27 Hep B, unspecified formulation 4 completed Not Available [facility] 06/22/2023 05:04:27 Hep B, unspecified formulation 4 completed Not Available [facility] 06/22/2023 05:04:27 Hep A, ped/adol, 2 dose 8 completed Not Available [facility] 06/22/2023 05:04:27 Hep A, ped/adol, 2 dose 9 completed Not Available [facility] 06/22/2023 05:04:27 Hep A, ped/adol, 2 dose 7 completed Not Available [facility] 06/22/2023 05:04:27 influenza, unspecified formulation 5 completed Not Available [facility] 06/22/2023 05:04:28 influenza, unspecified formulation 7 completed Not Available [facility] 06/22/2023 05:04:28 influenza, unspecified formulation 9 completed Not Available [facility] 06/22/2023 05:04:28 influenza, unspecified formulation 2 completed Not Available [facility] 06/22/2023 05:04:28 influenza, unspecified formulation 0 completed Not Available [facility] 06/22/2023 05:04:28 influenza, unspecified formulation 6 completed Not Available [facility] 06/22/2023 05:04:28 polio, unspecified formulation 9 completed Not Available [facility] 06/22/2023 05:04:29 polio, unspecified formulation 4 completed Not Available [facility] 06/22/2023 05:04:29 polio, unspecified formulation 4 completed Not Available [facility] 06/22/2023 05:04:29 polio, unspecified formulation 4 completed Not Available [facility] 06/22/2023 05:04:29 Past Encounters Encounter ID Performer Location Encounter Start Date Encounter Closed Date Diagnosis/Indication Diagnosis SNOMED-CT Code Diagnosis ICD10 Code Diagnosis Note [id number] [facility] [address] [place] [address] 08/26/2024 12:51:24 08/26/2024 13:58:12 Irregular periods 19116097 N92.6 had nexplanon out but has had irregular periods Menorrhagia 074305920 N9 2.0 has been having 7 to 8 day long periods but irregular and very heavy and painful. never had this before being on nexplanon but she was only 15 or so. will get transvagin al and transabdom inal u/s to make sure no fibroid Dysmenorrhea 471776359 N 94.6 during periods only. with heavy bleeding. never had this before Night sweats 94030555 R6 1 Non-menopa usal hot flash 1222346699 72162 R23.2 daily hot flashses for about 2 months Family his tory of polycystic ovary syndrome 085933037 Z84.2 Vaginal odor 956527795 N 89.8 yeast vs. bacteria, suspect bacterial vaginosis [id number] BURKE ARVIZU [facility] [address] [place] [address] 09/16/2024 13:25:08 09/16/2024 14:27:49 test positive 201224792 Z32.01 Positive home test. Quantitati ve hCG today. Tentativel y scheduled to establish care with OB September 23. Reviewed guidelines for and care? start vitamin.Re commend treatment for recent history of BV? reports symptoms improved today. Active prescripti on for metronidaz ole at the pharmacy. She will discuss further with SPOOL HAULER. Treating BV during is very important - may contribute to premature and in severe cases miscarriag es. Health Concerns Section Related Observation LastModified by Organization Detai ls LastModified Time None Recorded Concern Status LastModified by Organization Details LastModified Time None Recorded Payers Encounter Date Sequence Insurance Name Policy Number Policy Velasco Covered Member ID Velasco Member ID Guarantor Name 09/16/2024 1 [place] [facility] [id number] Ananth Lee [id number] Ananth Lee Notes Date Note Type Note Provider Name and Address Organization Details Recorded Time 09/16/2024 text/html Lyric presents to [facility] today to confirm ? recent home test positive. MARY CANNON, BURKE [address], [place], [address], [place] [facility]. 09/16/2024 17:14:20 OBGyn Episode No OBEpisode recorded.
--- OUTSIDE RECORDS SUMMARY | 2024-09-20 16:26 | XMS_ITS | Data Portability ---
Author Organization [place] - [facility] [place] [address] Assessment No assessment recorded. Plan of Treatment Reminders Order Date Submit Date Provider Last Modified By Organization Details Last Modified Time Details Appointments Follow Up 30 2024 12:30P M GAYLE CHOW Not available Not available Not available Lab beta-HCG , quantita tive, serum or plasma - 1 [facility] 2024 025 [email or web address] [facility] (Registration ), [address] [place] [address] Dr, [place], [address], 09/17/2024 15:36:02 Referral None recorded . Procedures None recorded . Surgeries None recorded . Imaging None recorded . Medication Orders None recorded . Patient TargetsNo targets recorded. Patient Instructions Encounter Date Encounter Id Patient Instructions Last Modified By Organization Details Last Modified Time 09/16/2024 [id number] Start vitamin's. Consider treating BV - you have an active RX for METRONIDAZOLE. Follow up with OB on September 23. Guidelines for and care - Here are some general guidelines to consider and to discuss further with your ATTENDANT [facility] STORE during your first appointment. Your ATTENDANT [facility] SERVICE STORE will take the time to address additional questions and/or any concerns you may have; and will monitor your health and your baby's health. Depending on your preference, you may work with a medical doctor or an advanced practitioner (such as a nurse practitioner, physician? s assistant professor of philosophy, or a buhr mill operator). General dietary guidelines? minimize use of artificial [...] acid supplementation daily. Folate is found in ieog-dug-ygirrim vitamins. Folic acid helps to prevent neural tube defects. At least 30 minutes of moderate exercise on most days of the week is a reasonable activity level for most women. Do not start any new ryba-sxz-szpanob medications, including supplements, without first discussing with your ATTEND[facility] STORE. No amount of alcohol consumption has been proven safe during . Illicit drug use can directly affect your baby's health -if you are at risk for illicit drug use, please discuss with your provider. We have many specialized interventions that can help. Avoid tobacco use during . During your first several visits, your ATTEND[facility]ICE STORE will likely discuss additional testing, including diabetes, blood type, thyroid testing, STD testing, and whether genetic testing is indicated. Your ATTEND[facility] SERVICE STORE will review the topics above in depth, as well as additional recommendations and screenings to keep you and baby healthy. Please let us know if you do not hear from ATTENDANT [facility] SERVICE STORE within the next few days; and/or you are not able to schedule your first appointment with your ATTEND[facility] STORE within the next few weeks. Please feel free to follow-up at any time during your if you have any questions or concerns -we are always here to help. [email or web address] Not available 09/16/2024 17:05:41 Reason for Referral None Reported. Results Created Date Observation Date Name Description Value Unit Range Abnormal Flag Note LastModifiedBy Organization Detail LastModifiedTime 08/26/1908/26/2024 COMPL ETE BLOOD COUNT W/DIF F WBC 7.23 10_3/ uL 4.4-10 .8 normal Not Available [address] [place], [address] 08/26/2024 19:02:04 08/26/19 25 08/26/2024 COMPL ETE BLOOD COUNT W/DIF F RBC 4.62 10_6/ uL 3.93-5 .22 normal Not Available [address] [place], [address] 08/26/2024 19:02:04 08/26/19 25 08/26/2024 COMPL ETE BLOOD COUNT W/DIF F HGB 14.1 g/dL 11.2-1 5.7 normal Not Available [address] [place], [address] 08/26/2024 19:02:04 08/26/19 25 08/26/2024 COMPL ETE BLOOD COUNT W/DIF F HCT 41.8 % 36.0-4 6.0 normal Not Available [address] [place], [address] 08/26/2024 19:02:04 08/26/19 25 08/26/2024 COMPL ETE BLOOD COUNT W/DIF F MCV 91 fL 80-95 normal Not Available [address] [place], [address] 08/26/2024 19:02:04 08/26/19 25 08/26/2024 COMPL ETE BLOOD COUNT W/DIF F MCH 30.5 pg 27.0-3 3.0 normal Not Available [address] [place], [address] 08/26/2024 19:02:04 08/26/19 25 08/26/2024 COMPL ETE BLOOD COUNT W/DIF F MCHC 33.7 % 32.0-3 6.0 normal Not Available [address] [place], [address] 08/26/2024 19:02:04 08/26/19 25 08/26/2024 COMPL ETE BLOOD COUNT W/DIF F RDW 12.1 % 11.7-1 4.6 normal Not Available [address] [place], [address] 08/26/2024 19:02:04 08/26/19 25 08/26/2024 COMPL ETE BLOOD COUNT W/DIF F platelet count 284 10_3/ uL 130-40 0 normal Not Available [address] [place], [address] 08/26/2024 19:02:04 08/26/19 25 08/26/2024 COMPL ETE BLOOD COUNT W/DIF F MPV 10.3 fL 8.0-11 .0 normal Not Available [address] [place], [address] 08/26/2024 19:02:04 08/26/1908/26/2024 COMPL ETE BLOOD COUNT W/DIF F neutrophils % 56.0 % Not Available [address] [place], [address] 08/26/2024 19:02:04 08/26/19 25 08/26/2024 COMPL ETE BLOOD COUNT W/DIF F lymphocytes % 35.5 % Not Available [address] [place], [address] 08/26/2024 19:02:04 08/26/19 25 08/26/2024 COMPL ETE BLOOD COUNT W/DIF F monocytes % 6.1 % Not Available [address] [place], [address] 08/26/2024 19:02:04 08/26/19 25 08/26/2024 COMPL ETE BLOOD COUNT W/DIF F eosinophils % 1.4 % Not Available [address] [place], [address] 08/26/2024 19:02:04 08/26/19 25 08/26/2024 COMPL ETE BLOOD COUNT W/DIF F basophils % 0.7 % Not Available [address] [place], [address] 08/26/2024 19:02:04 08/26/1908/26/2024 COMPL ETE BLOOD COUNT W/DIF F immature grans % 0.3 % Not Available [address] [place], [address] 08/26/2024 19:02:04 08/26/19 25 08/26/2024 COMPL ETE BLOOD COUNT W/DIF F nucleated RBC 0.0 % 0.0-0. 3 normal Not Available [address] [place], [address] 08/26/2024 19:02:04 08/26/19 25 08/26/2024 COMPL ETE BLOOD COUNT W/DIF F absolute neutrophil count 4.05 10_3/ uL 1.2-6. 7 normal Not Available [address] [place], [address] 08/26/2024 19:02:04 08/26/19 25 08/26/2024 COMPL ETE BLOOD COUNT W/DIF F absolute lymphocyte count 2.57 10_3/ uL 1.2-3. 4 normal Not Available [address] [place], [address] 08/26/2024 19:02:04 08/26/19 25 08/26/2024 COMPL ETE BLOOD COUNT W/DIF F absolute monocyte count 0.44 10_3/ uL 0.1-0. 8 normal Not Available [address] [place], [address] 08/26/2024 19:02:04 08/26/1908/26/2024 COMPL ETE BLOOD COUNT W/DIF F absolute eosinophil count 0.10 10_3/ uL 0.0-0. 7 normal Not Available [address] [place], [address] 08/26/2024 19:02:04 08/26/1908/26/2024 COMPL ETE BLOOD COUNT W/DIF F absolute basophil count 0.05 10_3/ uL 0.0-0. 2 normal Not Available [address] [place], [address] 08/26/2024 19:02:04 08/26/1908/26/2024 COMPR EHENS HESHAM METAB OLIC PANEL calcium 9.7 mg/dL 8.5-10 .1 normal Not Available [address] [place], [address] 08/26/2024 19:20:06 08/26/1908/26/2024 COMPR EHENS HESHAM METAB OLIC PANEL glucose 88 mg/dL 74-106 normal Not Available [address] [place], [address] 08/26/2024 19:20:06 08/26/1908/26/2024 COMPR EHENS HESHAM METAB OLIC PANEL BUN 17 mg/dL 7-18 normal Not Available Lemuel donahue [address] [place], [address] 08/26/2024 19:20:06 08/26/19 25 08/26/2024 COMPR EHENS HESHAM METAB OLIC PANEL creatinine 0.8 mg/dL 0.55-1 .02 normal Not Available [address] [place], [address] 08/26/2024 19:20:06 08/26/19 25 08/26/2024 COMPR EHENS [...] young er-ag ed adult s. Not Available [address] [place], [address] 08/26/2024 19:20:06 08/26/19 25 08/26/2024 COMPR EHENS HESHAM METAB OLIC PANEL total protein 7.8 g/dL 6.4-8. 2 normal Not Available [address] [place], [address] 08/26/2024 19:20:06 08/26/19 25 08/26/2024 COMPR EHENS HESHAM METAB OLIC PANEL albumin 4.2 g/dL 3.4-5. 0 normal Not Available [address] [place], [address] 08/26/2024 19:20:06 08/26/19 25 08/26/2024 COMPR EHENS HESHAM METAB OLIC PANEL bilirubin, total 0.26 mg/dL 0.2-1. 0 normal Not Available [address] [place], [address] 08/26/2024 19:20:06 08/26/19 25 08/26/2024 COMPR EHENS HESHAM METAB OLIC PANEL alk phos 79 U/L 46-116 normal Not Available [address] [place], [address] 08/26/2024 19:20:06 08/26/19 25 08/26/2024 COMPR EHENS HESHAM METAB OLIC PANEL sodium 140 mmol/ L 136-14 5 normal Not Available [address] [place], [address] 08/26/2024 19:20:06 08/26/19 25 08/26/2024 COMPR EHENS HESHAM METAB OLIC PANEL potassium 4.3 mmol/ L 3.5-5. 1 normal Not Available [address] [place], [address] 08/26/2024 19:20:06 08/26/19 25 08/26/2024 COMPR EHENS HESHAM METAB OLIC PANEL chloride 104 mmol/ L 98-107 normal Not Available [address] [place], [address] 08/26/2024 19:20:06 08/26/19 25 08/26/2024 COMPR EHENS HESHAM METAB OLIC PANEL CO2 29.4 mmol/ L 21.0-3 2.0 normal Not Available [address] [place], [address] 08/26/2024 19:20:06 08/26/19 25 08/26/2024 COMPR EHENS HESHAM METAB OLIC PANEL anion gap 6.6 mmol/ L 3-11 normal Not Available [address] [place], [address] 08/26/2024 19:20:06 08/26/19 25 08/26/2024 COMPR EHENS HESHAM METAB OLIC PANEL AST 22 U/L 15-37 normal Not Available [address] [place], [address] 08/26/2024 19:20:06 08/26/19 25 08/26/2024 COMPR EHENS HESHAM METAB OLIC PANEL ALT 25 U/L 14-59 normal Not Available Lemuel donahue [address] [place], [address] 08/26/2024 19:20:06 08/26/19 25 08/26/2024 TSH (W/RE F FT4) TSH (w/ref FT4) 1.39 uIU/m L 0.36-3 .74 normal NOTE: Supra -phys iolog ic doses of Bioti n(B7) may cause false negat hesham resul ts. Not Available [address] [place], [address] 08/26/2024 19:20:06 08/26/19 25 08/26/2024 HEMOG LOBIN A1C hemoglobin A1C 5.2 % <5.7 Refer ence Range s <5.7 Itzel l 5.7-6 .4% Predi abete s 6.5% or great er Diagn ostic for diabe hilary (if confi rmed) Refer ences : 1. Ameri can Diabe hilary Assoc iatio n. Clas sific ation and Diagn osis of Diabe hilary. Diabe hilary Care 2019 2(Sup pleme nt 1):S1 3-s28 . Not Available [facility] (Registration ) [address] [place] [address] [place], [address], 08/26/2024 19:46:08 08/26/19 25 08/26/2024 VAGIN AL PATHO GEN SCREE N vaginal pathogen screen abnormal Vagin al Patho gen Scree n DESI DA NEGAT HESHAM GARDN ERELL A POSIT HESHAM TRICH OMONA S NEGAT HESHAM Not Available [facility] (Registration ) [address] [place] [address] [place], [address], 08/26/2024 21:38:19 08/26/19 25 08/26/2024 TSH (W/RE F FT4) TSH (w/ref FT4) 1.39 uIU/m L 0.36-3 .74 normal NOTE: Supra -phys iolog ic doses of Bioti n(B7) may cause false negat hesham resul ts. Not Available [facility] (Registration ) [address] [place] [address] Dr, [place], [address], 08/27/2024 04:06:08 08/26/19 25 08/27/2024 FREE T4 free T4 0.89 NG/dL 0.76-1 .46 normal Not Available [facility] (Registration ) [address] [place] [address] [place], [address], 08/27/2024 04:06:08 08/26/19 25 08/27/2024 ESTRA DIOL [...] perfo rmed or refer red by [facility] [address] [place] [address] Not Available [address] [place], [address] 08/28/2024 01:53:01 08/26/19 25 08/27/2024 PROGE STERO [...] perfo rmed or refer red by [facility] [address] [place] [address] Not Available [facility] (Registration ) [address] [place] [address] [place], [address], 08/28/2024 01:53:01 08/26/19 25 08/27/2024 PROLA CTIN prolactin 7.9 NG/mL see note NOTE: Femal e Refer ence Range s: PHYSI OLOGI TANNER STATU S REFER ENCE RANGE ----- ----- ----- ----- ----- ----- ---- Postm enopa usal 1.8 - 20.3 ng/mL Pregn ant 9.7 - 208.5 ng/mL Non-p regna nt 2.8 - 29.2 ng/mL Test perfo rmed or refer red by [facility] [address] [place] [address] Not Available [address] [place], [address] 08/28/2024 01:53:01 08/26/19 25 08/27/2024 FSH FSH 4.1 mIU/m L see note [...] perfo rmed or refer red by [facility] [address] [place] [address] Not Available [address], [address] 09/03/2024 16:52:01 08/26/19 25 08/27/2024 LH LH [...] perfo rmed or refer red by [facility] [address] [place] [address] Not Available [address] [place], [address] 09/03/2024 16:52:02 08/26/1908/27/2024 ESTRA DIOL estradiol 107 pg/mL see note [...] perfo rmed or refer red by [facility] [address] [place] [address] Not Available [facility] (Registration ) [address] [place] [address] [place], [address], 08/28/2024 01:53:05 08/26/1908/27/2024 PROGE STERO NE (UVM) progesterone (uvm) 0.5 [...] perfo rmed or refer red by [facility] [address] [place] [address] Not Available [address] [place], [address] 08/28/2024 01:53:05 08/26/1908/27/2024 PROLA CTIN prolactin 7.9 NG/mL see note NOTE: Femal e Refer ence Range s: PHYSI OLOGI TANNER STATU S REFER ENCE RANGE ----- ----- ----- ----- ----- ----- ---- Postm enopa usal 1.8 - 20.3 ng/mL Pregn ant 9.7 - 208.5 ng/mL Non-p regna nt 2.8 - 29.2 ng/mL Test perfo rmed or refer red by [facility] [address], [place] [address] Not Available [facility] (Registration ) [address] [place] [address] [place], [address], 08/28/2024 01:53:06 08/26/1909/03/2024 TESTO STERO NE, TOTAL FREE testosterone , free 0.90 NG/dL <0.13- 1.08 ----- ----- ----- ----A DDITI ONAL INFOR MATIO N---- ----- ----- ----- This test was devpelon oped and its perfo rmanc e kerry cteri stics deter mined by [facility] do in a karen r consi stent with ESTHER jordan. This test has not been clear ed or appro tanna by the U.S. Food and Drug Admin istra tion. Not Available [address] [place], [address] 09/03/2024 16:51:59 08/26/1909/03/2024 TESTO STERO NE, TOTAL FREE testosterone , total 23 NG/dL 8-60 ----- ----- ----- ----A DDITI ONAL INFOR MATIO N---- ----- ----- ----- Testi ng perfo rmed by Geneva Tierney atogr aphy- Jassi m Mass Spect romet ry (LC-M S/MS) . This test was devel oped and its perfo rmanc e kerry cteri stics deter mined by [facility] in a karen r consi stent with ESTHER encarnacion ts. This test has not been clear ed or appro tanna by the U.S. Food and Drug Admin istra tion. Test Perfo rmed by: [facility] Labor atori es - [place] [address], [place] [address] Lab Direc tor: Ge Shipley nn Ph.D. ; CLIA# [id number] Not Available [address] [place], [address] 09/03/2024 16:51:59 08/26/19 25 08/27/2024 ESTRA DIOL [...] could lead to a false ly eleva amrcelino estra diol resul t in patie nts treat ed with this drug. Test perfo rmed or refer red by [facility] [address], [place] [address] Not Available [address] [place], [address] 09/03/2024 16:52:00 08/26/19 25 08/27/2024 PROGE STERO [...] perfo rmed or refer red by [facility] [address] [place] [place] [address] Not Available [address] [place], [address] 09/03/2024 16:52:00 08/26/19 25 08/27/2024 PROLA CTIN prolactin 7.9 NG/mL see note NOTE: Femal e Refer ence Range s: PHYSI OLOGI TANNER STATU S REFER ENCE RANGE ----- ----- ----- ----- ----- ----- ---- Postm enopa usal 1.8 - 20.3 ng/mL Pregn ant 9.7 - 208.5 ng/mL Non-p regna nt 2.8 - 29.2 ng/mL Test perfo rmed or refer red by [facility] [address] [place] [place] [address] Not Available [address] [place], [address] 09/03/2024 16:52:01 09/16/19 25 09/16/2024 HCG QUANT HCG quant 638 mIU/m L 1-3 high Appro ximat e Gesta bella l Age/A pprox imate HCG Range mIU/m L 0.2-1 Week 5-50 1-2 Weeks 50-50 0 2-3 Weeks 100-5 ,000 3-4 Weeks 500-1 0,000 4-5 Weeks 1,000 -50,0 00 5-6 Weeks 10,00 0-100 ,000 6-8 Weeks 15,00 0-200 ,000 2-3 Month s 10,00 0-100 ,000 Not Available [facility] (Registration ) [address] [place] [address] Dr, [place], [address], 09/16/2024 16:05:42 04/28/20 24 05/08/2020 imagi ng/di agnos tic [...] Patien t Name: Pearl Carlin Unit #: [id number] Loc: DI Orderi ng Provid er: Gayle Chow Accoun t #: [id number] Status : REG CLI Primar y [...] ------ - Dictat ed By: Coleen Garcia 1455 Transc ribed By: Jacqueline Perez 1455 This is privil eged, confid ential inform ation intend ed only for the provid er named. Any use or distri bution by any person other than this provid er is strict ly prohib ited. If you receiv e this report in error, please notify us immedi aparnaly at and return the origin al report to us at the addres s above. Thank- you. [facility] (Radiology) [address] [place] [address] , [place], [address], 09/19/2024 09:35:12 09/15/1909/15/2024 US, pelcesar s, trans abdom inal + trans vagin al No observ ation record ed. [facility] (Radiology) [address] [place] [address] , [place], [address], 09/19/2024 09:35:13 Result Notes None recorded. Problems Name Problem SNOMED Code Status Onset Date Resolution Date Notes Provider Name and Address Organization Details Recorded Time Irregula r periods 45833299 Active [address], [place], [address] , [facility] 13:13:49 Menorrha rasheed 537726197 Active [address], [place], [address] , [facility] 5 13:14:02 Dysmenor evelyn 697833149 Active 2024 [address], [facility] [address] , [facility] 5 13:14:09 Night sweats 29502371 Active 2024 [address], [facility] [address] , [facility] 5 13:15:26 Non-kain pausal hot flash 46063490399 9109 Active 2024 [address], [facility] [address] , [facility] 13:15:36 Vaginal odor 391616585 Active 2024 [address], [facility] [address] , [facility] 5 13:39:07 Bacteria l vaginosi s 139317878 Active 2024 LEILANI MEI [address], [facility] [address] , [facility] 5 12:29:08 Pregnanc y test positive 559977791 Active 2024 BUR[address] ARVI[address]U [address], [facility] [address] , [facility] 5 17:07:57 Acute bronchit is 41918551 Completed 201501/11/2016 Problem Code: J20.9; Problem Code Type: ICD-10; Not Available [facility] 3 05:13:25 Acute pharyngi tis 982636031 Completed 201605/02/2017 Problem Code: J02.9; Problem Code Type: ICD-10; Not Available [facility] 3 05:13:25 Fatigue 68702086 Active 2022 Problem Code: R53.83; Problem Code Type: ICD-10; Not Available [facility] 3 05:13:25 Cognitiv e deficit in attentio n 31970154950 9100 Active 202211/20/19 23 - Comments only - 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 Problem Code: R41.840; Problem Code Type: ICD-10; Not Available [facility] 3 05:13:25 Abnormal weight gain 855490175 Active 202211/20/19 23 - Comments only - Gayle Chow SEWING MACHINE MECHANIC - Screenin g labs today ordered. We will follow-u p for continue d discussi on about weight gain, exercise , diet restrict ions as well as possible initiati on of trial weight loss meds if needed. Problem Code: R63.5; Problem Code Type: ICD-10; Not Available [facility] 3 05:13:25 Irritabi lity and anger 434709863 Active 2022 Problem Code: R45.4; Problem Code Type: ICD-10; Not Available [facility] 3 05:13:25 Anxiety disorder 306169820 Active 202211/20/19 23 - Comments only - Gayle Chow SEWING MACHINE MECHANIC - We will establis h with one of our counselo rs here. Problem Code: F41.9; Problem Code Type: ICD-10; Not Available [facility] 3 05:13:25 Contrace ption care manageme nt Active 2022 Problem Code: Z30.9; Problem Code Type: ICD-10; Not Available [facility] 3 05:13:26 Family history of endocrin e disorder s 914588497 Active 2022 Not Available [facility] 3 05:13:26 Body mass index 40+ - severely obese 964118052 Active 2022 Problem Code: Z68.41; Problem Code Type: ICD-10; Not Available [facility] 3 05:13:26 Counseli ng Completed 202212/10/2022 11/20/19 23 - Comments only - Gayle Chow SEWING MACHINE MECHANIC - Now radha boyd on my panel. We will follow-u p in 3 months for check-in on weight gain and chronic conditio ns. Problem Code: Z71.89; Problem Code Type: ICD-10; Not Available [facility] 3 05:13:26 Contrace ption care manageme nt Completed 201705/09/2023 Problem Code: Z30.9; Problem Code Type: ICD-10; Not Available [facility] 3 05:13:38 Abnormal weight loss 087622954 Completed 201806/03/2020 Problem Code: R63.4; Problem Code Type: ICD-10; Not Available [facility] 3 05:13:39 Stomatit is 91497995 Completed 202002/01/2021 Problem Code: K12.1; Problem Code Type: ICD-10; Not Available [facility] 3 05:13:42 Adult health examinat ion Completed 201811/10/2022 Problem Code: Z00.00; Problem Code Type: ICD-10; Not Available [facility] 3 05:13:43 Anxiety 43917220 Completed 201911/10/2022 Problem Code: F41.8; Problem Code Type: ICD-10; Not Available [facility] 3 05:13:43 Counseli ng Completed 201711/10/2022 Problem Code: Z71.89; Problem Code Type: ICD-10; Not Available [facility] 3 05:13:46 Disorder of soft tissue 02359453 Completed 201902/01/2021 Problem Code: M79.89; Problem Code Type: ICD-10; Not Available [facility] 3 05:13:47 Generali zed anxiety disorder 84219692 Completed 201806/03/2020 Problem Code: F41.1; Problem Code Type: ICD-10; Not Available [facility] 3 05:13:47 Problem Notes None recorded. Procedures Surgical History Date Name Laterality Status Provider Name and Address Organization Details Recorded Time 08/20/202 4 Control Implant Removal completed [address], [place], [address], [place] [facility] 05/12/2024 22:31:54 Imaging Results Imaging Date Name [...] 03:47:19 09/15/2024 US, pelvis, transabdominal + transvaginal completed [facility] (Radiology) [address] [place] [address] [place], [address], 09/19/2024 09:35:12 09/15/2024 US, pelvis, transabdominal + transvaginal completed [facility] (Radiology) [address] [place] [address] [place], [address], 09/19/2024 09:35:13 Procedure Notes None recorded. Medical Equipment None [...] Available Not Available Nasonex 50 mcg/actua tion [place] 07/27 completed Not Available Not Available Not [...] 118 mm[Hg] 70 mm[Hg] MARKO LEONG RN [facility] [facility] 04/01/2024 13:39:51 Date Recorded Body height Body mass index (BMI) Percentile per age and sex Body mass index (BMI) Body weight Body temperature Oxygen saturation Oxygen saturation in Arterial blood by Pulse oximetry Heart rate Respiratory rate Systolic blood pressure Diastolic blood pressure Provider Name and Address Organization Details Last Updated DateTime 5 165.1 cm 98 % 39.9 kg/m2 980139. 73 g 98.1 [degF] 98 % 98 % 80 /min 16 /min 126 mm[Hg] 80 mm[Hg] MARKO LEONG RN [facility] 5 13:04:14 Date Recorded Body height Body mass index (BMI) Body weight Body temperature Heart rate Oxygen saturation Oxygen saturation in Arterial blood by Pulse oximetry Systolic blood pressure Diastolic blood pressure Provider Name and Address Organization Details Last Updated DateTime 5 165.1 cm 39.7 kg/m2 181900. 78 g 98.1 [degF] 120 /min 98 % 98 % 120 mm[Hg] 78 mm[Hg] Tara Fabian MA [facility] 13:41:53 Social History Question Answer Notes LastModified by Organizat ion Details LastModified Time Tobacco Smoking Status Never Smoker [facility] 04/01/2024 13:41:05 Do You Or Have You [...] 06/22/2023 05:04:22 MMR 5 completed Not Available [facility] 06/22/2023 05:04:22 DTaP, unspecified formulation 9 completed Not Available [facility] 06/22/2023 05:04:23 DTaP, unspecified formulation 4 completed Not Available [facility] 06/22/2023 05:04:23 DTaP, unspecified formulation 5 completed Not Available [facility] 06/22/2023 05:04:23 DTaP, unspecified formulation 4 completed Not Available [facility] 06/22/2023 05:04:23 DTaP, unspecified formulation 4 completed Not Available [facility] 06/22/2023 05:04:23 meningococcal MCV4P 6 completed Not Available [facility] 06/22/2023 05:04:23 Tdap 6 completed Not Available [facility] 06/22/2023 05:04:24 Influenza, split virus, quadrivalent, PF 9 completed Not Available [facility] 06/22/2023 05:04:24 Influenza, split virus, quadrivalent, PF 0 completed Not Available [facility] 06/22/2023 05:04:24 Influenza, split virus, quadrivalent, PF [...] completed Not Available [facility] 06/22/2023 05:04:26 varicella 9 completed Not Available [facility] 06/22/2023 05:04:26 varicella 5 completed Not Available [facility] 06/22/2023 05:04:26 Hep B, unspecified formulation 4 completed Not Available [facility] 06/22/2023 05:04:27 Hep B, unspecified formulation 4 completed Not Available [facility] 06/22/2023 05:04:27 Hep B, unspecified formulation 4 completed Not Available [facility] 06/22/2023 05:04:27 Hep A, ped/adol, 2 dose 8 completed Not Available [facility] 06/22/2023 05:04:27 Hep A, ped/adol, 2 dose 9 completed Not Available [facility] 06/22/2023 05:04:27 Hep A, ped/adol, 2 dose 7 completed Not Available [facility] 06/22/2023 05:04:27 influenza, unspecified formulation 5 completed Not Available [facility] 06/22/2023 05:04:28 influenza, unspecified formulation 7 completed Not Available [facility] 06/22/2023 05:04:28 influenza, unspecified formulation 9 completed Not Available [facility] 06/22/2023 05:04:28 influenza, unspecified formulation 2 completed Not Available [facility] 06/22/2023 05:04:28 influenza, unspecified formulation 0 completed Not Available [facility] 06/22/2023 05:04:28 influenza, unspecified formulation 6 completed Not Available [facility] 06/22/2023 05:04:28 polio, unspecified formulation 9 completed Not Available [facility] 06/22/2023 05:04:29 polio, unspecified formulation 4 completed Not Available [facility] 06/22/2023 05:04:29 polio, unspecified formulation 4 completed Not Available [facility] 06/22/2023 05:04:29 polio, unspecified formulation 4 completed Not Available [facility] 06/22/2023 05:04:29 Past Encounters Encounter ID Performer Location Encounter Start Date Encounter Closed Date Diagnosis/Indication Diagnosis SNOMED-CT Code Diagnosis ICD10 Code Diagnosis Note [id number] GAYLE CHOW [facility] [address] [place] [address] 04/01/2024 13:04:55 04/01/2024 14:06:28 Removal of subcutaneous contraceptive 641279685 Z30.46 nexplanon successful ly removed. patient tolerated well. given instructio ns for monitoring for infection or bleeding. she will call if any concerns. she will call if decides on alternativ e control method. not currently sexually active. aware that can occur without protection . [id number] MANUELA FRASER [facility] [address] [place] [address] 08/26/2024 12:51:24 08/26/2024 13:58:12 Irregular periods 80620884 N92.6 had nexplanon out but has had irregular periods Menorrhagia 641134032 N9 2.0 has been having 7 to 8 day long periods but irregular and very heavy and painful. never had this before being on nexplanon but she was only 15 or so. will get transvagin al and transabdom inal u/s to make sure no fibroid Dysmenorrhea 263052190 N 94.6 during periods only. with heavy bleeding. never had this before Night sweats 86778586 R6 1 Non-menopa usal hot flash 4063507207 78485 R23.2 daily hot flashses for about 2 months Family his tory of polycystic ovary syndrome 364614466 Z84.2 Vaginal odor 458721336 N 89.8 yeast vs. bacteria, suspect bacterial vaginosis [id number] MARY CANNON [facility] [address] [place] [address] 09/16/2024 13:25:08 09/16/2024 14:27:49 test positive 307376514 Z32.01 Positive home test. Quantitati ve hCG today. Tentativel y scheduled to establish care with OB September 23. Reviewed guidelines for and care? start vitamin.Re commend treatment for recent history of BV? reports symptoms improved today. Active prescripti on for metronidaz ole at the pharmacy. She will discuss further with DIRECTOR OF PLANT OPERATIONS. Treating BV during is very important - [...] Member ID Guarantor Name 04/01/2024 1 [place] [facility] [id number] Ananth Do Comerio [id number] Ananth Comerio 09/16/2024 1 [place] [facility] [id number] Ananth C Comerio [id number] Ananth Comerio Notes Date Note Type Note Provider Name and Address Organization Details Recorded Time 04/01/2024 text/html Lyric is a pleasant 18 year old female here today for a procedure visit for a nexplanon removal. Was placed in 2018. has given verbal consent for removal of nexplanon today. has no allergies to lidocaine or betadine.Declines other control method at this time. BURKE MIKE [address], [place], [address], [facility]. 05/12/2024 22:34:07 09/16/2024 text/html Lyric presents to [facility] today to confirm ? recent home test positive. BURKE ARVIZU [address], [place], [address], [facility], [facility]. 09/16/2024 17:14:20 OBGyn Episode No OBEpisode recorded.
--- OUTSIDE RECORDS SUMMARY | 2024-09-20 16:26 | XMS_ITS | Clinical Summary ---
Author Organization [facility] Address [address] [place] [address] Care Team Providers Care Dowel Inspector Name Role Phone Unavailable Primary Care Provider Unavailabl e Encounters Date Type Department Care Team Description 08/27/2024 Lab Requisition [facility] Pathology & Laboratory Medicine - [facility] [address] [place] [address] Outr Resulting Lab, Provider from Last 3 [...] 7.9 See Note ng/mL 08/27/2024 18:08 EST [facility] Comment: NOTE: Female Reference Ranges: PHYSIOLOGICAL STATUS ?REFERENCE RANGE ? Postmenopausal ?1.8 - 20.3 ng/mL ?9.7 - 208.5 ng/mL Non- ?2.8 - 29.2 ng/mL Blood VENOUS BLOOD / Unknown 08/26/2024 13:40 EST 08/27/2024 16:54 EST us Provider Outr Resulting Lab CHEMISTRY & BLOOD GA S ORDERABLES Final Result [facility] [address] [place] [address] * PROGESTERONE (08/26/2024 13:40 EST) Progesterone 0.5 See Table ng/mL 08/27/2024 17:37 EST [facility] Comment: Female Reference Ranges: PHYSIOLOGICAL [...] & BLOOD GA S ORDERABLES Final Result [facility] [address] [place] [address] * ESTRADIOL, ADULTS (08/26/2024 13:40 EST) Estradiol 107 See Note pg/mL 08/27/2024 17:36 EST [facility] Comment: NOTE: FEMALE REFERENCE RANGES: [...] S ORDERABLES Final Result Performing Organization Address [facility] de Phone Number [facility] [address] [place] [address] * LH (08/26/2024 13:40 EST) Luteinizing Hormone 4.0 See Note mIU/mL 08/27/2024 18:08 EST [facility] Comment: NOTE: Female Reference Ranges: [...] S ORDERABLES Final Result Performing Organization Address [facility] Co de Phone Number [facility] [address] [place] [address] * FSH (08/26/2024 13:40 EST) FSH 4.1 See Note mIU/mL 08/27/2024 18:08 EST [facility] Blood VENOUS BLOOD / Unknown 08/26/2024 13:40 EST 08/27/2024 16:54 EST Narrative [facility] - 08/27/2024 18:08 EST NOTE: [...] & BLOOD GA S ORDERABLES Final Result [facility] [address] [place] [address] from Last 3 Months
--- OUTSIDE RECORDS SUMMARY | 2024-09-20 16:26 | XMS_ITS | Encounter Summary ---
Author Organization [facility] Address [address] [place] [address] Care Team Providers Care Human Resources Professional Name Role Phone Unavailable Primary Care Provider Unavailabl e Encounter Details Date Type Department Care Team (Late st Contact Info) Description 08/27/2024 Lab Requisition [facility] Pathology & Laboratory Medicine - [facility] [address] [place], [place] [address] Outr Resulting Lab, Provider Social History Tobacco [...] 4.0 See Note mIU/mL 08/27/2024 18:08 EST [facility] Comment: NOTE: Female Reference Ranges: [...] & BLOOD GA S ORDERABLES Final Result [facility] [address] [place] [address] * FSH (08/26/2024 13:40 EST) FSH 4.1 See Note mIU/mL 08/27/2024 18:08 EST [facility] Blood VENOUS BLOOD / Unknown 08/26/2024 13:40 EST 08/27/2024 16:54 EST Narrative [facility] - 08/27/2024 18:08 EST NOTE: [...] S ORDERABLES Final Result Performing Organization Address [facility] de Phone Number [facility] [address] [place] [address] * PROLACTIN (08/26/2024 13:40 EST) Prolactin 7.9 See Note ng/mL 08/27/2024 18:08 EST [facility] Comment: NOTE: Female Reference Ranges: PHYSIOLOGICAL STATUS ?REFERENCE RANGE ? Postmenopausal ?1.8 - 20.3 ng/mL ?9.7 - 208.5 ng/mL Non- ?2.8 - 29.2 ng/mL Blood VENOUS BLOOD / Unknown 08/26/2024 13:40 EST 08/27/2024 16:54 EST us Provider Outr Resulting Lab CHEMISTRY & BLOOD GA S ORDERABLES Final Result Performing Organization Address [facility] de Phone Number [facility] [address] [place] [address] * PROGESTERONE (08/26/2024 13:40 EST) Progesterone 0.5 See Table ng/mL 08/27/2024 17:37 EST [facility] Comment: Female Reference Ranges: PHYSIOLOGICAL [...] & BLOOD GA S ORDERABLES Final Result [facility] [address] [place] [address] * ESTRADIOL, ADULTS (08/26/2024 13:40 EST) Estradiol 107 See Note pg/mL 08/27/2024 17:36 EST [facility] Comment: NOTE: FEMALE REFERENCE RANGES: [...] & BLOOD GA S ORDERABLES Final Result [facility] [address] [place] [address] documented in this encounter Visit Diagnoses Not on filedocumented in this encounter
--- OUTSIDE RECORDS SUMMARY | 2024-09-20 16:26 | XMS_ITS | Encounter Summary ---
Author Organization [facility] Address [address] [place] [address] Care Team Providers Care Pepper Picker Name Role Phone Unavailable Primary Care Provider Unavailabl e Encounter Details Date Type Department Care Team (Late st Contact Info) Description 08/24/2020 Lab Requisition [facility] Pathology & Laboratory Medicine - [facility] [address] [place] [address] Outr Resulting Lab, Provider Social History Tobacco [...] 1, PCR Positive(A) Negative 08/25/2020 14:00 EST [facility] Herpes Simplex Virus Molecular Detection 2, PCR Negative Negative 08/25/2020 14:00 EST [facility] Swab ORAL CAVITY SPECIMEN / Unknown 08/24/2020 12:05 EST 08/24/2020 22:36 EST us Provider Outr Resulting Lab MICROBIOLOGY - GENER AL ORDERABLES Final Result [facility] [address] [place] [address] documented in this encounter Visit Diagnoses Not on filedocumented in this encounter
--- OUTSIDE RECORDS SUMMARY | 2024-09-20 16:26 | XMS_ITS | Continuity of Care Document ---
Author Name [facility] Organization [facility] Care Team Providers Care Graphic Art Designer Name Role Phone [facility] Unavailable Unavailable Problems Combined list of problems [...] 12 mg/dL 7 - 17 01/05 N [facility] [place] [facility] is UA Color YELLOW 01/05 [facility] [place] [facility]inalys is UA Appear Cloudy 1 *NA* (01/05/23 9:53 AM) 01/05 Interpretiv e Data: Reference Range UA pH: ? 5 9 UA Specific [place] ? 1.010-1.025 UA Urobilinoge n? 0.1-1.0 [facility] [place] [facility] Urinalys is UA pH 6.0 *NA* (01/05/23 9:53 AM) 01/05 [facility] [place] [facility] Urinalys is UA Spec [place] <=1.005 01/05 [facility] [place] [facility] Urinalys is UA Glucose Negative *NA* (01/05/23 9:53 AM) 01/05 [facility] [place] [facility] Urinalys is UA Ketones Negative (01/05/23 9:53 AM) 05/26 /2023 N [facility] [place] [facility] Urinalys is UA Blood Negative *NA* (01/05/23 9:53 AM) 01/05 [facility] [place] [facility] Urinal[facility] is UA Protein Negative *NA* (01/05/23 9:53 AM) 01/05 [facility] [place] [facility]inal[facility] is UA Bili Negative *NA* (01/05/23 9:53 AM) 01/05 [facility] [place] [facility] Urinalys is UA Urobilinog en 0.2 *NA* (01/05/23 9:53 AM) 01/05 [facility] [place] [facility] Urinal[facility] is UA Nitrite POSITIVE 01/05 [facility] [place] [facility] Urinalys is UA Leuk Esterase Trace *ABN* (01/05/23 9:53 AM) 01/05 A [facility] [place] [facility] Urinalys is UA Clarity CLOUDY 01/05 [facility] [place] [facility] Chemistr y Creatinine Level 0.90 mg/dL 0.52 - 1.04 01/05 N [facility] [place] [facility] Chemist[facility] y AST 27 U/L 14 - 36 01/05 N [facility] [place] [facility] Chemist[facility] y eGFR CKD EPI 94 mL/min/1 .73_m2 01/05 Interpretiv e Data: Estimated Glomerular Filtration Rate (eGFR) calculated using the 2020 Chronic Kidney Disease-Epi demiology (CKD-EPI) Collaborati on creatinine equation; units of measure are mL/min/1.73 m2. Results are only valid for adults ([id number]) whose serum creatinine is in steady state. [...] G4 Severe Decrease <15 G5 Kidney Failure [facility] [place] [facility] Urinalys is UA RBC None Seen 2 (01/05/23 9:53 AM) 01/05 N Interpretiv e Data: Reference Range UA WBC? 0-2 / HPF UA RBC? 0-2/ HPF [facility] [place] [facility] Urinalys is UA WBC 5-10 *ABN* (01/05/23 9:53 AM) 01/05 A [facility] [place] [facility] Urinalys is UA Bacteria Many *ABN* (01/05/23 9:53 AM) 01/05 A [facility] [place] [facility] Urinalys is UA Epi Squam Few *ABN* (01/05/23 9:53 AM) 01/05 A [facility] [place] [facility] Urinalys is UA Mucous Many (01/05/23 9:53 AM) 01/05 N [facility] [place] [facility] Urinalys is UA Amorph Crystal Moderate (01/05/23 9:53 AM) 01/05 N [facility] h Vital Signs Combined list of inpatient and outpatient Vital Signs from Department of [facility] and [facility], ranging from 12 months to all on record, depending upon the facility. Vital Sign Value Date Comments Source Systolic Blood Pressure 125 mm[Hg] 01/06/20 14:35:00 0321-[facility] [place] Diastolic Blood Pressure 78 mm[Hg] 023 14:35:00 032-[facility] Mean Arterial Pressure, Calc 94 mm[Hg] 01/05/2023 14:35:00 032-[facility] Peripheral Pulse Rate 68 bpm 01/05/2023 14:35:00 032-[facility] Respiratory Rate 12 br/min 01/05/2023 14:35:00 032-[facility] Temperature Oral 36.8 Christine 01/05/2023 14:35:00 032-[facility] BP Site Right arm 01/05/2023 14:35:00 032-[facility] Blood Pressure Manual Automatic 01/05/2023 14:35:00 032-[facility] Procedures Combined list of: 1) Procedures from [facility] of [facility] facilities going back up to thelast 18 months, not all [place] non-surgical procedures are included; 2) All procedures from the Department [facility] facilities. Procedure Procedure Type Code Date Perfomer Comments Sour e No data available for this section Ambulatory P harmacy Social History Combined list of available smoking, tobacco, and other social history from [facility] and [facility] facilities. Social History Type Response Date Comment [...] Plan No data available for this section 09/20/2024 Ambulatory Pharmacy Functional Status Combined list of recent functional and cognitive assessments recorded at Department of [facility] [place] Functional Stark Measurement (FIM) Scale: 1 = Total Assistance (Subject = 0% +), 2 = Maximal Assistance (Subject = 25% +), 3 = Moderate Assistance (Subject = 50% +), 4 = Minimal Assistance (Subject = 75% +), 5 = Supervision, 6 = Modified Stark (Device), 7 = Complete Stark (Timely, Safely). Assessment Date/Time Source Assessment Type Assessment Skill Assessment Score Assessment Details No data available for this section
--- OUTSIDE RECORDS SUMMARY | 2024-09-20 16:26 | XMS_ITS | Referral Summary ---
Author Organization [facility] Address [address] [place] [address] Care Team Providers Care Women Specialist Name Role Phone Unavailable Primary Care Provider Unavailabl e Encounters Date Type Department Care Team Description 08/27/2024 Lab Requisition [facility] Pathology & Laboratory Medicine - [facility] [address] [place] [address] Outr Resulting Lab, Provider from Last 3 [...] 18:08 EST [facility] Comment: NOTE: Female Reference Ranges: PHYSIOLOGICAL STATUS ?REFERENCE RANGE ? Postmenopausal ?1.8 - 20.3 ng/mL ?9.7 - 208.5 ng/mL Non- ?2.8 - 29.2 ng/mL Blood VENOUS BLOOD / Unknown 08/26/2024 13:40 EST 08/27/2024 16:54 EST us Provider Outr Resulting Lab CHEMISTRY & BLOOD GA S ORDERABLES Final Result [facility] [address] [place] [address] * PROGESTERONE (08/26/2024 13:40 EST) Progesterone 0.5 See Table ng/mL 08/27/2024 17:37 EST [facility] Comment: Female Reference Ranges: PHYSIOLOGICAL [...] S ORDERABLES Final Result Performing Organization Address [facility] de Phone Number [facility] [address] [place] [address] * ESTRADIOL, ADULTS (08/26/2024 13:40 EST) Estradiol 107 See Note pg/mL 08/27/2024 17:36 EST [facility] Comment: NOTE: FEMALE REFERENCE RANGES: [...] S ORDERABLES Final Result Performing Organization Address [facility] de Phone Number [facility] [address] [place] [address] * LH (08/26/2024 13:40 EST) Luteinizing Hormone 4.0 See Note mIU/mL 08/27/2024 18:08 EST [facility] Comment: NOTE: Female Reference Ranges: [...] Final Result [facility] [address] [place] [address] * FSH (08/26/2024 13:40 EST) FSH 4.1 See Note mIU/mL 08/27/2024 18:08 EST [facility] Blood VENOUS BLOOD / Unknown 08/26/2024 13:40 EST 08/27/2024 16:54 EST Narrative [facility] - 08/27/2024 18:08 EST NOTE: [...] Final Result [facility] [address] [place] [address] from Last 3 Months
--- OUTSIDE RECORDS SUMMARY | 2024-09-20 16:26 | XMS_ITS | Continuity of Care Document ---
Author Organization [facility] Address [address] [place] [address] Care Team Providers Care Computer Animator Name Role Phone TRACY BAINS APRN Primary Care Physician Encounter [facility] NBR [id number] Date(s): 09/17/24 - 09/17/24 [facility] [address] [place] [address]- [place] Encounter Type: History Medications Nexplanon 0 Refill(s) Start Date: 08/18/23 Status: Ordered Repeat number: 1 Social History Social History Type Response Sex Female Sex Representation Female (finding) Patient Care team information Care Team Personnel Name: TRACY BAINS APRN Position: No Access Member Role: Primary Care Physician Address: [facility] - [address] [address] [place] Telecom: Insurance Providers Guarantor name: JONE NUNEZ Health Plan Information #: 1 Payer: [facility] Member Number: NA Policy Number: NA Group Number: NA
--- OUTSIDE RECORDS SUMMARY | 2024-09-20 16:26 | XMS_ITS | Continuity of Care Document ---
Author Organization [facility] Address [address] [place] [address] Care Team Providers Care Twister In Name Role Phone TRACY BAINS APRN Primary Care Physician [phone] Encounter [facility] NBR [id number] Date(s): 09/17/24 - 09/17/24 [facility] [address] [place] [address]- [place] Discharge Disposition: Home Encounter Type: Between Visit Medications Nexplanon 0 Refill(s) Start Date: 08/18/23 Status: Ordered Repeat number: 1 Social History Social History Type Response Sex Female Sex Representation Female (finding) Patient Care team information Care Team Personnel Name: TRACY BAINS APRN Position: No Access Member Role: Primary Care Physician Address: [facility] - [address] [address] [place] Telecom: Insurance Providers Guarantor name: JONE NUNEZ Health Plan Information #: 1 Payer: [facility] Member Number: NA Policy Number: NA Group Number: NA
== END 2024-09-20 17:51 | disposition left against medical advice (07) ==
PROVIDERS: Emergency Provider Physician Assistant
DX: Z53.21 Procedure and treatment not carried out due to patient leaving prior to being seen by health care provider (principal)